=== PATIENT | male | born 1955 | race Hispanic/Latino ===

== ENCOUNTER 2016-12-24 17:55 | Observation (INO) | payer OTHER, MEDICARE ==
[2016-12-24] MEDS ORDERED: Sodium Chloride 0.9% 500 ML IV STA (19:29)
[2016-12-24 19:51] LABS: HEMOGLOBIN 12.4 g/dL (14.0-18.0); MEAN CELL VOLUME 88.1 fl (80.0-105.0); MEAN PLATELET VOLUME 10.7 fl (7.0-11.0); RBC 4.27 10^6/uL (3.5-6.1); RED CELL DISTRIBUTION WIDTH 13.1 % (11.5-14.5); WHITE BLOOD COUNT 11.2 10^3/ul (4.5-11.0)
[2016-12-24 20:00] LABS: ALB/GLOB RATIO 1.3 (1.1-1.8); CALCIUM 9.2 mg/dL (8.4-10.5)
[2016-12-24 20:01] LABS: INR 0.98 (0.93-1.08); PROTHROMBIN TIME 10.6 Seconds (9.9-11.8)
[2016-12-24 20:11] LABS: TROPONIN I 0.02 ng/mL
--- NOTE | 2016-12-24 20:11 | ED PDOC ---
Arrival/HPI - General Chief Complaint: Altered Mental Status Time Seen by Provider: 12/24/16 19:23 Historian: Patient - History of Present Illness Narrative History of Present Illness (Text): 12/24/16 19:25 Fabián Munguia is a 61 year old male, whose past medical history diabetes, CHF, hypertension, chronic back pain secondary to herniated discs, and spinal stenosis, who presents to the emergency department sent in by girlfriend after a syncopal episode prior to arrival. Patient is on oxycontin medication. Patient does not remembers what happened prior to syncopal episode. Patient denies any head pain, neck pain, chest pain, shortness of breath, fever, chills , or any other complaints at this time. Time/Duration: Prior to Arrival Activities at Onset: Light Modifying Factors (Text): none Context: Home Past Medical History - Provider Review Nursing Documentation Reviewed: Yes - Infectious Disease Hx of Infectious Diseases: None - Tetanus Immunization Tetanus Immunization: Unknown - Cardiac Hx Congestive Heart Failure: Yes Hx Hypertension: Yes - Pulmonary Hx Chronic Obstructive Pulmonary Disease (COPD): Yes - Neurological HX Cerebrovascular Accident: No Hx Dementia: No Hx Seizures: No - HEENT Hx HEENT Disorder: No Hx Blind: No Hx Cataracts: No Hx Deafness: No Hx Difficulty Chewing: No Hx Epistaxis: No Hx Glaucoma: No Hx Macular Degeneration: No - Renal Hx Renal Disorder: No - Endocrine/Metabolic Hx Diabetes Mellitus Type 2: Yes Hx Hypothyroidism: Yes - Hematological/Oncological Hx Anemia: No Hx Cancer: Yes (Colon CA) - Integumentary Hx Dermatological Disorder: Yes Other/Comment: Facial flushing with dryness since being on antibiotics - approx 6 wks - Musculoskeletal/Rheumatological Hx Falls: No - Gastrointestinal Hx Gastrointestinal Disorders: Yes (Colon CA) - Genitourinary/Gynecological Other/Comment: urinary frequency - Psychiatric Hx Depression: No Hx Emotional Abuse: No Hx Physical Abuse: No Hx Substance Use: No - Surgical History Hx Gastric Bypass Surgery: No Other/Comment: RT 4TH AND 5TH PARTIAL AMPUTATION. PICC LINE in L arm - Anesthesia Hx Anesthesia: Yes Hx Anesthesia Reactions: No Hx Malignant Hyperthermia: No - Suicidal Assessment Feels Threatened In Home Enviroment: No Family/Social History - Physician Review Nursing Documentation Reviewed: Yes Family/Social History: No Known Family HX Smoking Status: Never Smoked Hx Alcohol Use: No Hx Substance Use: No Hx Substance Use Treatment: No Allergies/Home Meds Allergies/Adverse Reactions: Allergies cephalexin monohydrate [From Keflex] Allergy (Verified 12/20/15 14:26) RASH Home Medications: Home Meds Medication Instructions Recorded Confirmed Alprazolam [Xanax] 2 mg PO TID 10/12/11 05/06/16 Atorvastatin [Lipitor] 40 mg PO DAILY 10/12/11 05/06/16 Oxycodone HCl [Roxicodone] 30 mg PO Q4 10/12/11 05/06/16 Carisoprodol [Soma] 350 mg PO TID 10/30/15 05/06/16 Gabapentin [Neurontin] 800 mg PO TID 10/30/15 05/06/16 Levothyroxine Sodium 0.1 mg PO DAILY 10/30/15 05/06/16 [Levothyroxine Sodium] Losartan Potassium [Losartan 100 mg PO DAILY 10/30/15 05/06/16 Potassium] Oxycodone HCl [Oxycontin] 80 mg PO Q8 10/30/15 05/06/16 glyBURIDE [Micronase] 5 mg PO DAILY 10/30/15 05/06/16 metFORMIN [glucOPHAGE] 500 mg PO BID 10/30/15 05/06/16 Review of Systems - Review of Systems Constitutional: absent: Fevers, Night Sweats Eyes: absent: Vision Changes ENT: absent: Hearing Changes Respiratory: absent: SOB, Cough Cardiovascular: Syncope Gastrointestinal: absent: Abdominal Pain Genitourinary Male: absent: Dysuria, Urinary Output Changes Musculoskeletal: absent: Arthralgias, Back Pain Skin: absent: Rash, Pruritis Neurological: absent: Headache, Dizziness Endocrine: absent: Diaphoresis Hemo/Lymphatic: absent: Adenopathy Psychiatric: absent: Depression Physical Exam Vital Signs Reviewed: Yes Vital Signs Temp Pulse Resp BP Pulse Ox 12/24/16 18:05 96.5 F L 100 H 20 118/56 L 94 L Temperature: Hypothermic Blood Pressure: Hypotensive Pulse: Tachycardic Pain Distress: None Mental Status: Positive for: Alert and Oriented X 3 Finger Stick Blood Glucose: 208 - Systems Exam Head: Present: Atraumatic, Normocephalic Pupils: Present: Other (small and reactive) Extroacular Muscles: Present: EOMI Conjunctiva: Present: Normal Mouth: Present: Moist Mucous Membranes Neck: Present: Normal Range of Motion Respiratory/Chest: Present: Clear to Auscultation, Good Air Exchange. No: Respiratory Distress, Accessory Muscle Use Cardiovascular: Present: Regular Rate and Rhythm, Normal S1, S2. No: Murmurs Abdomen: Present: Normal Bowel Sounds. No: Tenderness, Distention, Peritoneal Signs Back: Present: Normal Inspection Upper Extremity: Present: Normal Inspection. No: Cyanosis, Edema Lower Extremity: Present: Normal Inspection. No: Edema Neurological: Present: Other (Drowsy but alert) Skin: Present: Warm, Dry, Normal Color. No: Rashes Psychiatric: Present: Alert, Oriented x 3, Normal Insight, Normal Concentration Medical Decision Making ED Course and Treatment: 12/24/16 19:23 Impression: 61 year old present emergency department with syncopal episode prior to arrival Differential Diagnosis included but are not limited to: syncope vs.cerebral bleed vs. narcotic abuse Plan: -- EKG -- Chest X-ray -- Labs -- IV Fluids -- Reassess and disposition Prior Visits: Notes and results from previous visits were reviewed. Patient last seen in the ED on 05/01/16 for evaluation status post fall that day. Patient was admitted to ICU for further evaluation. Progress Notes: 12/24/16 22:32 CXR interpreted by me: No acute processes. EKG interpreted by me: Sinus Tachycardia @ 101 bpm. Occasional PACs. Non-specific STT changes. 12/24/16 23:37 CT Head reviewed: Dictated and Authenticated by: Katarina Monroy MD FINDINGS: Brain: No acute intracranial hemorrhage. Age-appropriate periventricular white matter disease. No edema. Findings within the right cerebellum consistent with prior cerebral infarction. Ventricles: Age-appropriate ventriculomegaly. Bones: No acute displaced fracture. Sinuses: Mucoperiosteal thickening within the bilateral maxillary sinuses (left greater than right). Mastoid air cells: Unremarkable as visualized. No mastoid effusion. IMPRESSION: No acute intracranial hemorrhage, or suspicious mass effect. Inflammatory sinus disease. 12/25/16 00:25 Case discussed with who is aware and agrees with the plan to observe patient at telemetry for syncope. Accepts patient under his service. - Lab Interpretations Lab Results: 12/24/16 19:30 12/24/16 19:30 Lab Results 12/24/16 22:20: Urine Opiates Screen Positive H, Urine Methadone Screen Negative , Ur Barbiturates Screen Negative, Ur Phencyclidine Scrn Negative, Ur Amphetamines Screen Negative, U Benzodiazepines Scrn Positive H, U Oth Cocaine Metabols Negative, U Cannabinoids Screen Negative 12/24/16 21:00: Alcohol, Quantitative < 10 12/24/16 19:30: WBC 11.2 H, RBC 4.27, Hgb 12.4 L, Hct 37.6 L, MCV 88.1, MCH 29.0 , MCHC 33.0, RDW 13.1, Plt Count 173, MPV 10.7 12/24/16 19:30: Sodium 137, Potassium 4.3, Chloride 100, Carbon Dioxide 28, Anion Gap 13, BUN 48 H, Creatinine 2.3 H, Est GFR ( Amer) 35, Est GFR ( Non-Af Amer) 29, Random Glucose 186 H, Calcium 9.2, Total Bilirubin 0.7, AST 38 , ALT 34, Alkaline Phosphatase 105, Lactate Dehydrogenase 395, Total Creatine Kinase 684 H, CK-MB (CK-2) 6.9 H, CK-MB (CK-2) % 1.0 L, Troponin I 0.02 D, Total Protein 7.0, Albumin 4.0, Globulin 3.0, Albumin/Globulin Ratio 1.3 12/24/16 19:30: PT 10.6, INR 0.98, APTT 24.0 12/24/16 18:05: POC Glucose (mg/dL) 208 H I have reviewed the lab results: Yes - RAD Interpretation Radiology Orders: 12/24/16 19:28 CHEST PORTABLE [RAD] Stat 12/24/16 22:20 HEAD W/O CONTRAST [CT] Stat E Business Project Manager: Radiologist - Medication Orders Current Medication Orders: Discontinued Medications Sodium Chloride (Sodium Chloride 0.9%) 500 mls @ 500 mls/hr IV .Q1H STA Stop: 12/24/16 20:28 Last Admin: 12/24/16 20:39 Dose: 500 mls/hr - Scribe Statement The provider has reviewed the documentation as recorded by the Dejonibthierry Pickens Provider Scribe Attestation: All medical record entries made by the Scribe were at my direction and personally dictated by me. I have reviewed the chart and agree that the record accurately reflects my personal performance of the history, physical exam, medical decision making, and the department course for this patient. I have also personally directed, reviewed, and agree with the discharge instructions and disposition. Disposition/Present on Arrival - Present on Arrival Any Indicators Present on Arrival: No History of DVT/PE: Yes History of Uncontrolled Diabetes: Yes Urinary Catheter: No History of Decub. Ulcer: No History Surgical Site Infection Following: None - Disposition Have Diagnosis and Disposition been Completed?: Yes Diagnosis: Syncope Disposition: HOSPITALIZED Disposition Time: 00:12 Patient Plan: Observation Patient Problems: Current Active Problems Problem Status Onset Syncope Acute Condition: STABLE Discharge Instructions (ExitCare): Syncope (ED) Referrals: Timothy Adams MD [Primary Care Provider] - Follow up with primary Forms: [employer] (Belarusian)
[2016-12-24 20:16] LABS: CK-MB 6.9 ng/mL (0.0-3.6)
[2016-12-24 22:46] LABS: BARBITURATES, UR NEGATIVE (NEGATIVE); BENZODIAZEPINES, UR POSITIVE (NEGATIVE); OPIATES, UR POSITIVE (NEGATIVE); PHENCYCLIDINE, UR NEGATIVE (NEGATIVE)
--- NOTE | 2016-12-24 23:25 | CT ---
EXAM: CT Head Without Intravenous Contrast CLINICAL HISTORY: 61 years old, male; Signs and symptoms; Syncope and collapse TECHNIQUE: Axial computed tomography images of the head/brain without intravenous contrast. All CT scans at this facility use one or more dose reduction techniques, viz.: automated exposure control; ma/kV adjustment per patient size (including targeted exams where dose is matched to indication; i.e. head); or iterative reconstruction technique. COMPARISON: CT - HEAD W/O CONTRAST 05/01/2016 6:42:53 AM FINDINGS: Brain: No acute intracranial hemorrhage. Age-appropriate periventricular white matter disease. No edema. Findings within the right cerebellum consistent with prior cerebral infarction. Ventricles: Age-appropriate ventriculomegaly. Bones: No acute displaced fracture. Sinuses: Mucoperiosteal thickening within the bilateral maxillary sinuses (left greater than right). Mastoid air cells: Unremarkable as visualized. No mastoid effusion. IMPRESSION: No acute intracranial hemorrhage, or suspicious mass effect. Inflammatory sinus disease.
[2016-12-25 04:59] VITALS: BMI 36.6
[2016-12-25 06:03] VITALS: O2SAT 96
[2016-12-25] MEDS: Levothyroxine 100 MCG TAB PO SCH (07:05)
--- NOTE | 2016-12-25 09:11 | RAD ---
HISTORY: syncope COMPARISON: 05/01/2016 FINDINGS: LUNGS: No active pulmonary disease. PLEURA: No significant pleural effusion identified, no pneumothorax apparent. CARDIOVASCULAR: Normal. OSSEOUS STRUCTURES: No significant abnormalities. VISUALIZED UPPER ABDOMEN: Normal. OTHER FINDINGS: None. IMPRESSION: No active disease.
[2016-12-25] MEDS ORDERED: Sodium Chloride 0.9% 1,000 ML IV SCH (09:15)
--- NOTE | 2016-12-25 10:32 | CP.PCM.CON ---
<Rohan Trotter - Last Filed: 12/25/16 14:41> History of Present Illness - History of Present Illness History of Present Illness: Neurology Consult Note for Dr. Rapp Reason for Consult: Syncope 61 y/o M with PMH of NIDDM, CHF, HTN, hypothyroidisn, gout, PE s/p IVC filter, DJD, chronic pain syndrome, and morbid obesity presents to the hospital s/p fall at home. Pt states that he did not have a syncopal episode or lose consciousness. Pt reports walking in his house when his legs gave out. He states his fall was witnessed by his girlfriend and he did not have any convulsive movements or incontinence. Pt also reports no tongue biting. Pt does have baseline weakness in his legs and has been admitted to the hospital several times in the past with similar complaints. Pt uses a cane at home for ambulation. Pt reports increased weakness in his legs recently and thinks that may have contributed to his fall. Denies CP, SOB, N/V/D, fever, chills, dizziness, recent sick contacts, recent travel. PMH: NIDDM, CHF, HTN, hypothyroidisn, gout, PE s/p IVC filter, DJD, chronic pain syndrome, and morbid obesity FMH: Noncontributory Social Hx: Denies alcohol, tobacco, or illicit drug use Medication: Reviewed, as per chart Allergies: Cephalexin Review of Systems - Review of Systems Review of Systems: 12 point review of systems as per HPI, otherwise negative Past Patient History - Infectious Disease Hx of Infectious Diseases: None - Tetanus Immunizations Tetanus Immunization: Unknown - Past Social History Smoking Status: Never Smoked - CARDIAC Hx Cardiac Disorders: Yes Hx Angina: No Hx Cardia Arrhythmia: No Hx Circulatory Problems: Yes Hx Congestive Heart Failure: Yes Hx Heart Murmur: No Hx Heart Transplant: No Hx Hypercholesterolemia: No Hx Hypertension: Yes Hx Internal Defibrillator: No Hx Mitral Valve Prolapse: No Hx Pacemaker: No Hx Peripheral Edema: Yes Hx Peripheral Vascular Disease: Yes - PULMONARY Hx Respiratory Disorders: Yes Hx Asthma: No Hx Bronchitis: No Hx Chronic Obstructive Pulmonary Disease (COPD): Yes Hx Emphysema: No Hx Pneumonia: No Hx Respiratory Aspiration: No Hx Respiratory Tract Infection: No Hx Sleep Apnea: No Hx Tuberculosis: No - NEUROLOGICAL Hx Neurological Disorder: No - HEENT Hx HEENT Problems: No - RENAL Hx Chronic Kidney Disease: No - ENDOCRINE/METABOLIC Hx Endocrine Disorders: Yes Hx Diabetes Mellitus Type 2: Yes Hx Hypothyroidism: Yes - HEMATOLOGICAL/ONCOLOGICAL Hx Blood Disorders: Yes Hx Cancer: Yes - INTEGUMENTARY Hx Dermatological Problems: Yes Other/Comment: Redness in abdominal folds - MUSCULOSKELETAL/RHEUMATOLOGICAL Hx Musculoskeletal Disorders: Yes Hx Degenerative Joint Disease: Yes Hx Falls: Yes Hx Gout: Yes Hx Herniated Disk: Yes Hx Osteomyelitis: Yes Hx Spinal Stenosis: Yes Hx Unsteady Gait: Yes (uses cane) - GASTROINTESTINAL Hx Gastrointestinal Disorders: No - GENITOURINARY/GYNECOLOGICAL Hx Hematuria: Yes Hx Prostate Problems: Yes - PSYCHIATRIC Hx Psychophysiologic Disorder: No - SURGICAL HISTORY Hx Surgeries: Yes Hx 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) Hx Cardiac Catheterization: No Hx Coronary Stent: No - ANESTHESIA Hx Anesthesia: Yes Hx Anesthesia Reactions: No Hx Malignant Hyperthermia: No Meds Allergies/Adverse Reactions: Allergies Allergy/AdvReac Type Severity Reaction Status Date / Time cephalexin monohydrate Allergy RASH Verified 12/20/15 14:26 [From Keflex] - Medications Medications: Current Medications Alprazolam (Xanax) 2 mg PO TID PRN PRN Reason: Anxiety Last Admin: 12/25/16 07:05 Dose: 2 mg Atorvastatin Calcium (Lipitor) 40 mg PO HS KARAN Gabapentin (Neurontin) 600 mg PO BID [facility]ARAN Glyburide (Micronase) 5 mg PO DAILY [facility] Sodium Chloride (Sodium Chloride 0.9%) 1,000 mls @ 100 mls/hr IV .Q10H [facility] Stop: 12/25/16 19:14 Insulin Human Regular (Humulin R Low) 0 units SC ACHS [facility] PRN Reason: Protocol Levothyroxine Sodium (Synthroid) 100 mcg PO 0630 [facility] Last Admin: 12/25/16 07:05 Dose: 100 mcg Losartan Potassium (Cozaar) 100 mg PO DAILY [facility] Oxycodone HCl (Oxycodone Immediate Release Tab) 30 mg PO Q4 PRN PRN Reason: Pain, moderate (4-7) Oxycodone HCl (Oxycontin Extended Release Tab) 80 mg PO Q12 [facility] Physical Exam - Constitutional Appears: Non-toxic, No Acute Distress - Head Exam Head Exam: ATRAUMATIC, NORMAL INSPECTION, NORMOCEPHALIC - Eye Exam Eye Exam: EOMI - ENT Exam ENT Exam: Mucous Membranes Moist - Neck Exam Neck exam: Positive for: Normal Inspection. Negative for: Lymphadenopathy - Respiratory Exam Respiratory Exam: Clear to Auscultation Bilateral, NORMAL BREATHING PATTERN. absent: Rales, Rhonchi, Wheezes - Cardiovascular Exam Cardiovascular Exam: RRR, +S1, +S2 - GI/Abdominal Exam GI & Abdominal Exam: Normal Bowel Sounds, Soft. absent: Tenderness - Extremities Exam Extremities exam: Positive for: pedal edema (+1 b/l). Negative for: calf tenderness - Neurological Exam Neurological exam: Alert, CN II-XII Intact, Oriented x3 Additional comments: No pronator drift Muscle strength 5/5 in all extremities Speech is fluent without errors - Psychiatric Exam Psychiatric exam: Normal Affect, Normal Mood - Skin Skin Exam: Intact, Normal Color, Warm Results - Vital Signs Recent Vital Signs: Last Vital Signs Temp 98.1 F 12/25/16 06:00 Pulse 86 12/25/16 06:00 Resp 20 12/25/16 06:00 BP 132/66 12/25/16 06:00 Pulse Ox 96 12/25/16 06:00 - Labs Result Diagrams: 12/24/16 19:30 12/24/16 19:30 Labs: Laboratory Results - last 24 hr 12/25/16 07:12 POC Glucose (mg/dL) 171 H Assessment & Plan - Assessment and Plan (Free Text) Plan: 61 y/o M with PMH of NIDDM, CHF, HTN, hypothyroidisn, gout, PE s/p IVC filter, DJD, chronic pain syndrome, and morbid obesity presents after a mechanical fall at home. Lower extremity weakness secondary to peripheral neuropathy may have contributed to fall. Pt did have elevated HgA1c and will recheck on this admission. At this time, will also adjust pain and neuropathic medication as overuse may contribute to weakness. Pt is neurologically stable, will sign off at this time. Please reconsult as needed. Plan: Check HgA1c Maintain glucose levels between 140-180 Neurontin dosage adjusted Decrease pain medication Physical therapy Rose Marie, PGY-2 <Shai Rapp - Last Filed: 12/26/16 10:19> Meds - Medications Medications: Current Medications Alprazolam (Xanax) 2 mg PO TID PRN PRN Reason: Anxiety Last Admin: 12/25/16 07:05 Dose: 2 mg Atorvastatin Calcium (Lipitor) 40 mg PO HS [facility] Last Admin: 12/25/16 21:37 Dose: 40 mg Gabapentin (Neurontin) 600 mg PO BID [facility] Last Admin: 12/25/16 17:09 Dose: Not Given Glyburide (Micronase) 5 mg PO DAILY [facility] Last Admin: 12/25/16 09:57 Dose: 5 mg Insulin Human Regular (Humulin R Low) 0 units SC ACHS [facility] PRN Reason: Protocol Last Admin: 12/26/16 08:31 Dose: Not Given Levothyroxine Sodium (Synthroid) 100 mcg PO 0630 [facility] Last Admin: 12/26/16 05:31 Dose: 100 mcg Losartan Potassium (Cozaar) 100 mg PO DAILY [facility] Last Admin: 12/25/16 09:57 Dose: Not Given Oxycodone HCl (Oxycodone Immediate Release Tab) 30 mg PO Q4 PRN PRN Reason: Pain, moderate (4-7) Last Admin: 12/25/16 13:24 Dose: 30 mg Oxycodone HCl (Oxycontin Extended Release Tab) 80 mg PO Q12 [facility] Last Admin: 12/25/16 21:37 Dose: 80 mg Results - Vital Signs Recent Vital Signs: Last Vital Signs Temp 97.7 F 12/26/16 05:53 Pulse 77 12/26/16 05:53 Resp 20 12/26/16 05:53 BP 126/60 12/26/16 05:53 Pulse Ox 96 12/25/16 06:00 - Labs Result Diagrams: 12/24/16 19:30 12/24/16 19:30 Labs: Laboratory Results - last 24 hr 12/25/16 12/25/16 12/25/16 11:01 16:08 21:31 POC Glucose (mg/dL) 331 H 105 199 H Attending/Attestation - Attestation I have personally seen and examined this patient.: Yes I have fully participated in the care of the patient.: Yes I have reviewed all pertinent clinical information: Yes
--- NOTE | 2016-12-25 11:52 | CARD ---
APPROVED REPORT EKG Measurement Heart [id number] <Conclusion> Sinus tachycardia with premature atrial complexes Otherwise normal ECG
[2016-12-25] MEDS: Insulin Reg-LOW-Coverage SC SCH ×3 (12:12→21:32)
[2016-12-25] MEDS: oxyCODONE 30 mg Immediate Release Tab PO PRN (13:24)
[2016-12-25] MEDS: oxyCODONE 80 mg ER Tab (oxyCONTIN) PO SCH ×2 (13:27→21:37)
[2016-12-25 17:31] VITALS: RESP 20
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
[2016-12-26] MEDS: Levothyroxine 100 MCG TAB PO SCH (05:31)
--- NOTE | 2016-12-26 08:00 | HP ---
CHIEF COMPLAINT/HISTORY OF PRESENT ILLNESS: This is a 61-year-old male who is coming to the hospital because of changes in his mental status. He states that he had passed out. The patient has a past medical history significant for chronic back pain, on chronic narcotics. He has diabetes, CKD, hypothyroidism. The patient does not remember what has happened. He was admitted to the hospital in March for an episode of syncope as well. He denies any chest pain. No shortness of breath. No headaches or dizziness. No fevers. No weakness in the arms or legs. He said that his girlfriend called EMS to bring him in for further evaluation. He is able to walk, but does have some limitations because of his back pain. He is able to walk at home mostly. No fevers or chills. No new weakness in the arms or the legs. No hallucinations. REVIEW OF SYMPTOMS: All the review of symptoms are within normal limits, except what is mentioned. ALLERGIES: HIS ALLERGY IS TO CEPHALEXIN. HOME MEDICATIONS: Xanax, Lipitor, Roxicodone, Soma, Neurontin, levothyroxine, losartan, OxyContin, Micronase, and metformin. PAST MEDICAL HISTORY: 1. Diabetes type 2. 2. COPD. 3. Chronic back pain. 4. Hypertension. 5. Hypothyroidism. 6. DVT. 7. Status post IVC filter. 8. Gout. 9. Dyslipidemia. 10. Peripheral arterial disease. 11. CKD stage III. 12. Right toe osteomyelitis. PAST SURGICAL HISTORY: Right fourth and fifth toe amputation. SOCIAL HISTORY: He does not smoke. He denies any substance abuse or illicit drug use. FAMILY HISTORY: Noncontributory. PHYSICAL EXAMINATION: VITAL SIGNS: Temperature is 98.7, pulse of 56, blood pressure 137/69, and respirations 20. Height is 6 feet 2 inches and weight is 285 pounds, BMI is 36.6. GENERAL: The patient lying in bed, uncomfortable, and in no acute distress. HEENT: Atraumatic and normocephalic. Anicteric sclerae. Moist mucosa. [place] conjunctivae. No oral lesions. NECK: No JVD, anterior and posterior adenopathy, thyromegaly, or bruits. CARDIOVASCULAR: S1 and S2 regular. No murmur, rubs, or gallop. LUNGS: Clear to auscultation bilaterally. No wheezes, rales, or rhonchi. ABDOMEN: Bowel sounds are positive. Soft, nontender and nondistended. No hepatosplenomegaly. No rebound and no guarding EXTREMITIES: No cyanosis, clubbing, or edema. NEUROLOGIC: He is alert, awake and oriented x2. He believes that it is Saturday; although, it is Saturday. No facial asymmetry. Tongue is midline. No uvula deviation. Power is 5/5, upper extremity and lower extremity. PSYCHIATRIC: He is awake, alert and oriented x3. No anxiety or depression. He has normal affect. GENITOURINARY: No CVA tenderness. VASCULAR: 2+ pulses in the carotid pulses and pedal pulses. SKIN: No erythema or nodules SPINE: Shows normal curvature. EXTREMITIES: No cyanosis and clubbing, no edema. LABORATORY DATA: White count of 11.2, hemoglobin 12.4 and platelet count is 173. Chemistry shows a sodium 137, potassium 4.3, creatinine is 2.3, CK is 684, albumin is 4.0. Toxicology is positive for opiates and benzodiazepines. Alcohol is less than 10. He has an EKG that shows sinus tachycardia with PAC. He has a heart rate of 101. QTc is 469. He has a chest x-ray done, shows no active disease. A CT of the head done shows no acute intracranial abnormalities. ASSESSMENT: 1. Syncope. 2. Diabetes type 2. 3. Chronic obstructive pulmonary disease, stable. 4. Hypertension. 5. Hypothyroidism. 6. History of deep vein thrombosis with inferior vena cava filter, not on anticoagulation. 7. Dyslipidemia. 8. Peripheral arterial disease. 9. Chronic kidney disease, stage III. 10. Obese with a body mass index of 36. 11. Diabetic nephropathy. PLAN: The patient is currently comfortable. After reviewing his medications, I believe that he may be taking too much of his Neurontin. He was taking 800 mg t.i.d., which is well above the dosage he should be on given that he has CKD stage IIIB, close to stage IV. The patient is going to have his Neurontin adjusted. I did speak to him about this. I also spoke with Dr. Rapp. The patient is going to continue Lipitor for dyslipidemia and Cozaar for his hypertension. He was given IV fluids. The patient is on Neurontin for neuropathy. He is on fingersticks with coverage. He is on OxyContin and Roxicodone. He is on Synthroid for hypothyroidism. He has been on narcotics for very long time because of his chronic pain issues. I will also get Dr. Pagan to evaluate the patient for his anxiety. I will also get Dr. Seay to evaluate the patient for any cardiac issues. The patient had urine for protein and creatinine done in April, it does not show significant proteinuria. His kidney disease is most likely secondary to diabetic nephropathy. The patient is currently comfortable. He is going to need physical therapy. We will continue to follow him closely. He may need a stress test. He has a high risk of having coronary artery disease given he has CKD and diabetes, as well as obesity and hypertension. Antonio Molina MD
[2016-12-26] MEDS: Insulin Reg-LOW-Coverage SC SCH ×3 (08:31→17:35)
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
[2016-12-26] MEDS ORDERED: Aminophylline 25 mg/ml Inj ONE (09:07)
--- NOTE | 2016-12-26 11:59 | PN ---
DATE: 12/26/2016 REASON FOR CONSULTATION: Followup syncope, cardiac evaluation. SUBJECTIVE: The patient is lying flat on the bed on *------*. He denies any chest pain, shortness of breath, or any palpitation. PHYSICAL EXAMINATION: As follows: VITAL SIGNS: Temperature afebrile, heart rate of 74, and blood pressure 106/60. HEENT: PERRLA. Extraocular muscles are intact. NECK: Supple. No carotid bruit. No thyromegaly. CHEST: Clear to auscultation. HEART: S1 and S2 regular. ABDOMEN: Soft. EXTREMITIES: Clubbing and cyanosis negative. LABORATORY DATA: Blood workup as follows: WBC of 11.2, hemoglobin of 12.4, hematocrit of 37.6, and platelet count of 173 as of 12/24/2016. Sodium of 137, potassium of 4.3, chloride of 100, carbon dioxide 28, anion gap of 30, BUN of 20, and creatinine of 2.3 as of 12/24/2016, but today's lab is pending. IMPRESSION AND PLAN: A 61-year-old male with past medical history of diabetes, hypertension, hyperlipidemia and back injury who was bedridden, walk with a walker, multiple high doses of OxyContin admitted with history of syncope. The patient is not sure what is happened to him. Given the multiple disorder of coronary artery *------* lipid profile, TSH, and hemoglobin A1c. The patient is scheduled for his stress test today. We will follow with lab, for today it is pending. Further recommendation after the finding of initial workup and hospital course. The patient has rhabdomyolysis. On admission, continue IV fluid and monitor CPK and troponin. Today's lab is pending. We will follow with you. Thank you Dr. Molina, for the opportunity in taking care of the patient. Roseann Seay MD
--- NOTE | 2016-12-26 12:24 | PN ---
DATE: NEUROLOGY FOLLOWUP CHIEF COMPLAINT: Followup for syncope. SUBJECTIVE: The patient seen and examined at bedside. The patient is following medications well. No new complaints overnight. His medications are adjusted that his gabapentin now is 600 mg p.o. b.i.d. and primary care is working on tapering down his opioids. PAST MEDICAL HISTORY: Non-insulin dependent diabetes mellitus, CHF, hypertension, hypothyroidism, gout, PE, status post IVC filter, disk degenerative joint disease, chronic pain syndrome, morbid obesity. REVIEW OF SYSTEMS: A 14-point review of system is negative except as in the HPI. FAMILY HISTORY: Noncontributory. SOCIAL HISTORY: Denies any alcohol, illicit drug use or tobacco use. MEDICATIONS: Reviewed by the nurse per reconciliation sheet. ALLERGIES: ALLERGIC TO CEPHALEXIN. PHYSICAL EXAMINATION: VITAL SIGNS: Temperature is 97.7, pulse rate 74, blood pressure 126/60, respiratory rate 20. GENERAL: The patient is sitting up in the bed, in no acute distress. HEENT: Head is atraumatic and normocephalic. PERRLA. Extraocular muscles intact. NECK: Supple. No JVD. No adenopathy noted. LUNGS: Clear to auscultation. No adventitious sounds. HEART: S1 and S2, normal rate and rhythm. No murmurs, rubs, or gallops. ABDOMEN: Soft, nontender, nondistended. Bowel sounds are present. EXTREMITIES: No clubbing and no cyanosis. Peripheral pulses are 2+, felt bilaterally. NEUROLOGIC: The patient is alert and oriented to person, place and year. Recall after 5 minutes is 0 out of 3. Poor attention. Slow thought process. Cranial nerves II through XII intact. Speech is fluent without any errors. Motor exam: Moves all extremities equally. No pronator drift seen. Sensory exam: Decreased light touch, pinprick and proprioception upper calves bilaterally, decreased vibration of the toes and knees. DTRs are 1+ and absent at the knees. Coordination, [id number] intact. Gait is deferred for now. No tremors elicited. LABORATORY DATA: Today's blood sugar is 199. ASSESSMENT AND PLAN: A 61-year-old man with past medical history of non-insulin dependent diabetes mellitus, congestive heart failure, hypertension, hypothyroidism, gout, pulmonary embolism, status post inferior vena cava filter, disk degenerative disease, chronic pain syndrome, on chronic opioids, morbid obesity, had a mechanical fall at home, lower extremity weakness secondary to severe diabetic peripheral neuropathy sensorimotor type, which contributes to his gait dysfunction and generalized weakness. He has had a history of elevated A1c of 12 in the past, which indicates poorly-controlled diabetes. His generalized weakness and syncope is also related to neuropathic and chronic pain medications. At this time, recommend: 1. Reduce the Neurontin to 600 mg p.o. b.i.d. 2. Taper down the opiates strength and the timing of that he gets the pain medication in terms of opioids. 3. Keep his blood sugars between 140 to 180. 4. Required physical therapy and possibly subacute rehab. At this time, continue with current present medical management in regards to his medical problems. Thank you for this followup. Shai Rapp MD MTDYohana
[2016-12-26] MEDS: oxyCODONE 80 mg ER Tab (oxyCONTIN) PO SCH (13:15)
--- NOTE | 2016-12-26 14:21 | DS ---
Perri ramirez. Antonio Molina MD
[2016-12-26 14:22] LABS: BASO # 0.01 K/mm3 (0.0-2.0); BASO % 0.1 % (0.0-3.0); EOS # 0.2 (0.0-0.7); EOS % 1.9 % (1.5-5.0); GRAN % 63.4 % (50.0-68.0); HEMOGLOBIN 10.7 g/dL (14.0-18.0); LYMPH # 2.1 (1.2-3.4); LYMPH % 27.2 % (22.0-35.0); MEAN CELL VOLUME 88.9 fl (80.0-105.0); MEAN CORPUSCULAR HEMOGLOBIN 29.1 pg (25.0-35.0); MEAN CORPUSCULAR HGB CONC 32.7 g/dl (31.0-37.0); MEAN PLATELET VOLUME 10.3 fl (7.0-11.0); MONO # 0.6 (0.1-0.6); MONO % 7.4 % (1.0-6.0); PLATELET COUNT 157 10^3/uL (120.0-450.0); RBC 3.68 10^6/uL (3.5-6.1); RED CELL DISTRIBUTION WIDTH 13.2 % (11.5-14.5); WHITE BLOOD COUNT 7.7 10^3/ul (4.5-11.0)
--- NOTE | 2016-12-26 14:27 | CARD ---
APPROVED REPORT Protocol: LEXISCAN Test Type: Lexiscan Sestamibi Stress Test Attending Physician: Dr. Roseann Matos Referring Physician: Dr. Antonio Molina Test Indications: Syncope Height:6 ft 2 in Weight:285lbs Medications: Xanax,Lipitor,Neurontin, Glyburide,Insulin,Synthroid, Cozaar, Oxycodone Medical History: 61 y/o male. Hx of diabetic,hypertension, CHF, Hypothyroid, PE with filter. Target HR: 160 bpm Resting ECG: RSR. Resting Heart Rate: 73 bpm Resting Blood Pressure: 144/80mmHg Submaximum (85%): 136 bpm PROCEDURE Pharmacologic stress testing was performed using 0.4mg per 5ml of regadenoson given intravenously over 7-10 seconds. POST EXERCISE Reason for Termination: Protocol completed Target HR: No Max HR: 69 bpm 53% of Maximum Predicted HR: 160 bpm Exercise duration: 00:30 min:sec, 0 Stage Exercise capacity: 1.0METs Max Blood Pressure: 144/80mmHg Blood Pressure response to exercise: resting hypertension - appropriate response Heart Rate response to exercise: appropriate Chest Pain: No, none Angina index: 0 Arrhythmia: No, none ST Change: No, none Deviation: 0 mm INTERPRETATION Stress EKG Conclusion: IV LEXISCAN NUCLEAR STRESS TEST NEGATIVE FOR CHEST PAIN AND NEGATIVE FOR ST-T CHANGES. NUCLEAR SCAN REPORT PENDING. Signed by Roseann Matos Electronically Approved: 12/26/2016 10:12:46 EXAM: Myocardial Perfusion REST/STRESS Stress Test Type: Pharmacologic Imaging Protocol Rest Spect myocardial perfusion imaging was performed in supine position 37 minutes following the injection of 10.4 mCi of Tc-99 Myoview. At peak stress, the patient was injected intravenously with 32mCi of Tc-99 tetrofosmin after an infusion time of 0 minutes and 10 seconds. Gated Stress Spect was performed 60 minutes after intravenous Tc-99 Myoview injection. The images were gated to evaluate regional wall motion and calculate ventricular ejection fraction.Images were reconstructed using backfilter projection method in short horizontal and verticle long axis. Spect slices were generated. LV Perfusion The quality of the study is good. The left ventricle moderately enlarged in size. The right ventricle is unremarkable. The lung uptake is normal. The distribution of tracer reveals heterogeneous uptake with moderately and diffusely decreased perfusion involving anterior wall on the stress study. The remainder of the LV myocardium is unremarkable. The rest myocardial perfusion study shows no significant change. Wall Motion Wall motion study shows good contractility of the left ventricle. LVEF = 52%. Conclusion 1. Probably normal SPECT myocardial perfusion study. 2. Heterogeneous activities and fixed, inferior defect are most likely due to soft tissue and diaphragmatic attenuation respectively. 3. Normal gated wall motion and thicknening of the left ventricle.
[2016-12-26 14:31] LABS: ALB/GLOB RATIO 1.1 (1.1-1.8); ALBUMIN 3.5 g/dL (3.0-4.8); CALCIUM 8.8 mg/dL (8.4-10.5); MAGNESIUM 1.8 mg/dL (1.7-2.2)
[2016-12-26] MEDS: oxyCODONE 30 mg Immediate Release Tab PO PRN (14:56)
[2016-12-26 17:02] VITALS: BP 174/86; PULSE 79; TEMP 98.3
--- NOTE | 2016-12-26 18:00 | CARD ---
APPROVED REPORT EXAM: Two-dimensional and M-mode echocardiogram with Doppler and color Doppler. INDICATION Syncope 2D DIMENSIONS IVSd1.4 (0.7-1.1cm)LVDd4.9 (3.9-5.9cm) PWd1.6 (0.7-1.1cm)LVDs3.4 (2.5-4.0cm) FS (%) 31.1 %LVEF (%)58.6 (>50%) M-Mode DIMENSIONS Aortic Root3.60 (2.2-3.7cm)Aortic Cusp Exc.2.30 (1.5-2.0cm) Aortic Valve AoV Peak Htjfiszg737.0cm/Elise Peak GR.6mmHg Mitral Valve MV E Amcrewza05.2cm/sMV A Gnbulkzx85.1cm/sE/A ratio0.8 TDI E/Lateral E'0.0E/Medial E'0.0 Pulmonary Valve PV Peak Ztzeispp14.9cm/sPV Peak Grad.3mmHg Tricuspid Valve TR Peak Jfjnesjt902ab/sRAP [id number] Peak Gr.22mmHg [id number] LEFT VENTRICLE The left ventricle is normal size. There is mild concentric left ventricular hypertrophy. The left ventricular function is normal.EF-55-60% There is normal LV segmental wall motion. Transmitral Doppler flow pattern is Grade III-reversible restrictive diastolic dysfunction. No left ventricle thrombus noted on this study. There is no ventricular septal defect visualized. There is no left ventricular aneurysm. There is no mass noted in the left ventricle. RIGHT VENTRICLE The right ventricle is normal size. There is normal right ventricular wall thickness. The right ventricular systolic function is normal. ATRIA The left atrium size is normal. The right atrium size is normal. The interatrial septum is intact with no evidence for an atrial septal defect. AORTIC VALVE The aortic valve is thickened but opens well. There is trace aortic regurgitation. There is no aortic valvular stenosis. There is no aortic valvular vegetation. MITRAL VALVE The mitral valve is thickened but opens well. Mitral regurgitation is trace. There is no mitral valve stenosis. There is no evidence of mitral valve prolapse. TRICUSPID VALVE The tricuspid valve leaflets are thickened , but open well. There is trace tricuspid regurgitation. There is no tricuspid valve stenosis. There is no tricuspid valve prolapse or vegetation. PULMONIC VALVE The pulmonary valve is normal in structure. There is trace pulmonic valvular regurgitation. There is no pulmonic valvular stenosis. GREAT VESSELS The aortic root is normal in size. The ascending aorta is normal in size. The pulmonary artery is normal. The IVC is normal in size and collapses >50% with inspiration. PERICARDIAL EFFUSION There is no pleural effusion. There is no pericardial effusion. <Conclusion> Normal chamber Size., EF-55-60% Trace MR/TR/ PI/AR RVSP-32 mmof Hg. There is no pericardial effusion. The IVC is normal in size and collapses >50% with inspiration. no thrombus or vegetation noted.
--- NOTE | 2016-12-27 04:22 | PN ---
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 He has a history of diabetes mellitus, congestive heart failure, hypertension, hypothyroidism, gout, PE with status post IVC filter, degenerative joint disease, and chronic pain as well as morbid obesity. The patient's gabapentin was adjusted to 600 mg b.i.d. and his opioids were being tapered. His blood sugar earlier in the day was 199 mg%. Psychotropically, the patient is on Xanax 2 mg t.i.d. p.r.n. and oxycodone 80 mg q. 12 hours and 30 mg q. 4 hours p.r.n. PHYSICAL EXAMINATION: VITAL SIGNS: Blood pressure is 157/76, pulse 70, temperature 98.6, respiratory rate 20. Irving Pagan MD/ PhD
== END 2016-12-26 18:24 | disposition home or self-care (01) ==
LOC: ED 17:55 → ERH 12-25 00:12 → 2RSO 12-25 02:44
PROVIDERS: ADMIT Internal Medicine Nephrology; ATTEND Internal Medicine Nephrology
DX: E11.42 Type 2 diabetes mellitus with diabetic polyneuropathy (principal); R26.81 Unsteadiness on feet; M62.82 Rhabdomyolysis; R53.1 Weakness; R55 Syncope and collapse; G89.4 Chronic pain syndrome; J44.9 Chronic obstructive pulmonary disease, unspecified; E11.21 Type 2 diabetes mellitus with diabetic nephropathy; N18.3 Chronic kidney disease, stage 3 (moderate); E03.9 Hypothyroidism, unspecified; E78.5 Hyperlipidemia, unspecified; E11.51 Type 2 diabetes mellitus with diabetic peripheral angiopathy without gangrene; M19.90 Unspecified osteoarthritis, unspecified site; I13.0 Hypertensive heart and chronic kidney disease with heart failure and stage 1 through stage 4 chronic kidney disease, or unspecified chronic kidney disease; I50.9 Heart failure, unspecified; M51.9 Unspecified thoracic, thoracolumbar and lumbosacral intervertebral disc disorder; M10.9 Gout, unspecified; F41.9 Anxiety disorder, unspecified; M48.00 Spinal stenosis, site unspecified; Z86.718 Personal history of other venous thrombosis and embolism; E66.01 Morbid (severe) obesity due to excess calories; Z68.36 Body mass index [BMI] 36.0-36.9, adult; Z79.891 Long term (current) use of opiate analgesic; Z86.711 Personal history of pulmonary embolism; Z79.84 Long term (current) use of oral hypoglycemic drugs
CPT/HCPCS: 36415; 70450; 71010; 78452; 80053; 80061; 80320; 80324; 80345; 80346; 80349; 80353; 80358; 80361; 82550; 82553; 82948; 83036; 83615; 83735; 83992; 84100; 84443; 84484; 85025; 85027; 85610; 85730; 93005; 93017; 93306; 96360; 97116; 97162; 99285; A9502; G0378; G8978; G8979; J7040

== ENCOUNTER 2017-01-23 11:19 | Inpatient (IN) | payer OTHER, MEDICARE ==
[2017-01-23 11:30] VITALS: BMI 40.1
[2017-01-23] MEDS ORDERED: Sodium Chloride 0.9% 1,000 ML IV STA (11:46)
--- NOTE | 2017-01-23 11:47 | ED PDOC ---
Arrival/HPI - General Chief Complaint: Trauma Time Seen by Provider: 01/23/17 11:22 Historian: Patient - History of Present Illness Narrative History of Present Illness (Text): 01/23/17 11:32 A 61 year old male, whose past medical history includes COPD, diabetes, hypertension, gout, DVT with IVC filter, and chronic back pain, was brought in by EMS and presents to the emergency department complaining of fall this morning. Patient reports his neighbor helped him into bed. He states when he woke up a couple hours later to use the bathroom, he passed out and hit the area below his left eye and jaw. Patient notes experiencing dizziness, but denies of any fever, chills, nausea, vomiting, diarrhea, abdominal pain, chest pain, shortness of breath, or any other complaints. No eye or jaw pain. Also, patient mentions he normally uses a walker help him ambulate. PMD: Dr. Molina Time/Duration: Other (this morning) Symptom Onset: Sudden Symptom Course: Unchanged Context: Home Past Medical History - Provider Review Nursing Documentation Reviewed: Yes - Infectious Disease Hx of Infectious Diseases: None - Tetanus Immunization Tetanus Immunization: Unknown - Cardiac Hx Cardiac Disorders: Yes Hx Congestive Heart Failure: Yes Hx Hypertension: Yes - Pulmonary Hx Chronic Obstructive Pulmonary Disease (COPD): Yes - Neurological Hx Neurological Disorder: No - HEENT Hx HEENT Disorder: No - Renal Hx Renal Disorder: No - Endocrine/Metabolic Hx Diabetes Mellitus Type 2: Yes Hx Hypothyroidism: Yes - Hematological/Oncological Hx Blood Disorders: Yes Hx Cancer: Yes - Integumentary Hx Dermatological Disorder: Yes Other/Comment: Redness in abdominal folds - Musculoskeletal/Rheumatological Hx Musculoskeletal Disorders: Yes Hx Degenerative Joint Disease: Yes Hx Falls: Yes Hx Gout: Yes Hx Herniated Disk: Yes Hx Osteomyelitis: Yes Hx Spinal Stenosis: Yes Hx Unsteady Gait: Yes (uses cane) - Gastrointestinal Hx Gastrointestinal Disorders: No - Genitourinary/Gynecological Hx Hematuria: Yes Hx Prostate Problems: Yes - Psychiatric Hx Psychophysiologic Disorder: No Hx Substance Use: No - Surgical History Hx 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) Hx Cardiac Catheterization: No Hx Coronary Stent: No - Anesthesia Hx Anesthesia: Yes Hx Anesthesia Reactions: No Hx Malignant Hyperthermia: No - Suicidal Assessment Feels Threatened In Home Enviroment: No Family/Social History - Physician Review Nursing Documentation Reviewed: Yes Family/Social History: No Known Family HX Smoking Status: Never Smoked Hx Alcohol Use: No Hx Substance Use: No Hx Substance Use Treatment: No Allergies/Home Meds Allergies/Adverse Reactions: Allergies cephalexin monohydrate [From Keflex] Allergy (Verified 12/20/15 14:26) RASH Penicillins Allergy (Verified 01/23/17 11:33) RASH Home Medications: Home Meds Medication Instructions Recorded Confirmed Alprazolam [Xanax] 2 mg PO TID 10/12/11 01/23/17 Atorvastatin [Lipitor] 40 mg PO DAILY 10/12/11 01/23/17 Oxycodone HCl [Roxicodone] 30 mg PO Q4 10/12/11 01/23/17 Carisoprodol [Soma] 350 mg PO TID 10/30/15 01/23/17 Levothyroxine Sodium 1.75 mg PO DAILY 10/30/15 01/23/17 [Levothyroxine Sodium] Oxycodone HCl [Oxycontin] 80 mg PO Q8 10/30/15 01/23/17 metFORMIN [glucOPHAGE] 500 mg PO BID 10/30/15 01/23/17 Albuterol Sulfate [Proair Hfa] 2 puff IH Q6 PRN 01/23/17 01/23/17 Glipizide [Glucotrol] 10 mg PO BID 01/23/17 01/23/17 Indomethacin [Indocin] 50 mg PO BID 01/23/17 01/23/17 Omeprazole Magnesium [Prilosec] 40 mg PO DAILY 01/23/17 01/23/17 Pregabalin [Lyrica] 300 mg PO BID 01/23/17 01/23/17 Solifenacin Succinate [Vesicare] 5 mg PO DAILY 01/23/17 01/23/17 Review of Systems - Physician Review All systems were reviewed & negative as marked: Yes - Review of Systems Constitutional: absent: Fevers, Night Sweats Eyes: absent: Vision Changes Respiratory: absent: SOB Cardiovascular: Syncope. absent: Chest Pain Gastrointestinal: absent: Abdominal Pain, Diarrhea, Nausea, Vomiting Neurological: Dizziness Physical Exam Vital Signs Reviewed: Yes Vital Signs Temp Pulse Resp BP Pulse Ox 01/23/17 13:19 91 H 18 122/68 95 01/23/17 11:29 98.2 F 103 H 18 124/72 95 Temperature: Afebrile Blood Pressure: Normal Pulse: Tachycardic Respiratory Rate: Normal Appearance: Positive for: Well-Appearing, Non-Toxic, Comfortable Pain Distress: None Mental Status: Positive for: Alert and Oriented X 3 Finger Stick Blood Glucose: 305 - Systems Exam Head: Present: Normocephalic, Other (small linear abrasion in the left infra- orbital area; no swelling or tenderness) Pupils: Present: PERRL Conjunctiva: Present: Normal Mouth: Present: Dry Pharnyx: Present: Normal. No: ERYTHEMA, EXUDATE Neck: Present: Normal Range of Motion Respiratory/Chest: Present: Clear to Auscultation Cardiovascular: Present: Normal S1, S2, Tachycardic Abdomen: Present: Normal Bowel Sounds. No: Tenderness, Distention, Peritoneal Signs Back: Present: Normal Inspection Upper Extremity: Present: Normal Inspection. No: Cyanosis, Edema Lower Extremity: Present: Other (bilateral abrasion to anterior knees). No: Edema, CALF TENDERNESS Neurological: Present: GCS=15, CN II-XII Intact, Speech Normal, Motor Func Grossly Intact Skin: Present: Warm, Dry, Normal Color. No: Rashes Psychiatric: Present: Oriented x 3 Medical Decision Making ED Course and Treatment: 01/23/17 11:40 Impression: 61 year old male with fall, syncope, and dizziness. Physical exam shows bilateral abrasion to anterior knees; lungs clear; heart rate regular; abdomen nontender. Differential Diagnosis included but are not limited to: Electrolyte Abnormalitiy vs. Dehydration vs. Cardiogenic vs. Neurogenic Syncope Plan: -- EKG -- Chest X-ray -- Bilateral Knee X-Ray -- Lumbar Spine CT -- Brain CT -- Labs -- Urinalysis -- IV Fluids -- Reassess and disposition Prior Visits: Notes and results from previous visits were reviewed. Patient was last seen in the emergency department on 12/24/2016 for a syncopal episode. Patient was admitted. Progress Notes: EKG: Ordered, reviewed, and independently interpreted the EKG. Rate : 102 BPM Rhythm : Sinus tachycardia Interpretation : QRS is 102. No ST-segment elevations or depressions, slight peaked T waves, no T-wave inversions, normal intervals. Comparison : No previous EKG for comparison. 01/23/2017 13:[address] IMPRESSION: No interval hemorrhage or mass effect. Chronic changes Dictator : Cece Galvan V. 01/23/2017 13:14 Bilateral Knee X-Ray IMPRESSION: No fracture or dislocation. Mild osteoarthrosis -each medial femoral tibial compartment most notably affected in right greater than left Dictator : Cece Galvan V. 01/23/2017 13:15 Chest X-ray IMPRESSION: Interval pathology noted Dictator : Cece Galvan V. 01/23/2017 13:[address] IMPRESSION: Severe stenosis L3-4. Moderate to severe stenosis at L4-5. Severe foraminal stenosis at L5-S1 bilaterally Dictator : Bret Alegria MD 01/23/17 14:29 Imaging as noted with no acute findings. Patient with syncope with unremarkable neuro exam; EKG is unremarkable as well. Labs with initial K of 7.3; stated as non-hemolyzed -ordered calcium, insulin, and kayexalate. Repeat K is 5.3; discussed case with Dr. Molina - will place on tele on observation, given syncope. - Lab Interpretations Lab Results: 01/23/17 11:59 01/23/17 13:59 Lab Results 01/23/17 13:59: Sodium 138, Potassium 5.3 H, Chloride 104, Carbon Dioxide 24, Anion Gap 15, BUN 35 H, Creatinine 2.0 H, Est GFR ( Amer) 41, Est GFR ( Non-Af Amer) 34, Random Glucose 257 H, Calcium 9.3 01/23/17 11:59: Sodium 136, Potassium 7.3 H* D, Chloride 101, Carbon Dioxide 23 , Anion Gap 19, BUN 37 H, Creatinine 2.2 H, Est GFR ( Amer) 37, Est GFR ( Non-Af Amer) 31, Random Glucose 334 H* D, Calcium 9.5, Magnesium 1.6 L, Total Bilirubin 1.0, AST 36, ALT 43, Alkaline Phosphatase 122, Lactate Dehydrogenase 755 H, Total Creatine Kinase 244 H, CK-MB (CK-2) 2.2, CK-MB (CK-2) % Cancelled, Troponin I 0.03 D, Total Protein 8.0, Albumin 4.4, Globulin 3.6, Albumin/ Globulin Ratio 1.2, Lipase 50 01/23/17 11:59: PT 10.2, INR 0.94, APTT 25.0 01/23/17 11:59: WBC 11.3 H D, RBC 4.60, Hgb 13.2 L D, Hct 40.5 L, MCV 88.0, MCH 28.7, MCHC 32.6, RDW 13.3, Plt Count 223, MPV 10.9, Gran % 83.2 H, Lymph % (Auto ) 10.6 L, [place] % (Auto) 6.1 H, Eos % (Auto) 0.0 L, Baso % (Auto) 0.1, Gran # 9.43 H, Lymph # 1.2, [place] # 0.7 H, Eos # 0.0, Baso # 0.01 I have reviewed the lab results: Yes - RAD Interpretation Radiology Orders: 01/23/17 11:42 KNEE W PATELLA BILAT 3 VIEW [RAD] Stat 01/23/17 11:43 Brain [HEAD W/O CONTRAST] [CT] Stat 01/23/17 11:45 CHEST ONE VIEW [RAD] Stat 01/23/17 12:30 LUMBAR SPINE W/O CONTRAST [CT] Stat - Medication Orders Current Medication Orders: Magnesium Sulfate 2 gm/ Sodium (Chloride) 104 mls @ 102 mls/hr IV ONCE ONE Stop: 01/23/17 15:20 Discontinued Medications Sodium Chloride (Sodium Chloride 0.9%) 1,000 mls @ 999 mls/hr IV .Q1H1M STA Stop: 01/23/17 12:46 Last Admin: 01/23/17 12:05 Dose: 999 mls/hr Calcium Gluconate 1,000 mg/ (Sodium Chloride) 110 mls @ 110 mls/hr IVPB ONCE ONE Stop: 01/23/17 13:29 Last Admin: 01/23/17 13:15 Dose: 110 mls/hr Insulin Human Regular (Humulin R) 8 units IVP ONCE STA Stop: 01/23/17 12:17 Last Admin: 01/23/17 13:13 Dose: 8 units Sodium Polystyrene Sulfonate (Kayexalate Oral Susp) 30 gm PO STAT STA Stop: 01/23/17 12:18 Last Admin: 01/23/17 13:15 Dose: 30 gm - Scribe Statement The provider has reviewed the documentation as recorded by the Vanessa Barajas Provider Dejonibe Attestation: All medical record entries made by the Dejonibthierry were at my direction and personally dictated by me. I have reviewed the chart and agree that the record accurately reflects my personal performance of the history, physical exam, medical decision making, and the department course for this patient. I have also personally directed, reviewed, and agree with the discharge instructions and disposition. Disposition/Present on Arrival - Present on Arrival Any Indicators Present on Arrival: Yes History of DVT/PE: Yes History of Uncontrolled Diabetes: Yes Urinary Catheter: No History of Decub. Ulcer: No History Surgical Site Infection Following: None - Disposition Have Diagnosis and Disposition been Completed?: Yes Diagnosis: Syncope Disposition: HOSPITALIZED Disposition Time: 12:17 Patient Plan: Observation, Telemetry Condition: FAIR Discharge Instructions (ExitCare): Syncope (ED) Referrals: PCP,NO [Non-Staff] - Follow up with primary Forms: Open Wager (Latvian)
[2017-01-23 12:13] LABS: ALB/GLOB RATIO 1.2 (1.1-1.8); CALCIUM 9.5 mg/dL (8.4-10.5); MAGNESIUM 1.6 mg/dL (1.7-2.2)
[2017-01-23 12:15] LABS: INR 0.94 (0.93-1.08)
[2017-01-23 12:16] LABS: BASO # 0.01 K/mm3 (0.0-2.0); BASO % 0.1 % (0.0-3.0); GRAN # 9.43 (1.4-6.5); GRAN % 83.2 % (50.0-68.0); HEMATOCRIT 40.5 % (42.0-52.0); LYMPH # 1.2 (1.2-3.4); LYMPH % 10.6 % (22.0-35.0); MEAN CORPUSCULAR HEMOGLOBIN 28.7 pg (25.0-35.0); MEAN CORPUSCULAR HGB CONC 32.6 g/dl (31.0-37.0); MEAN PLATELET VOLUME 10.9 fl (7.0-11.0); MONO # 0.7 (0.1-0.6); MONO % 6.1 % (1.0-6.0); POTASSIUM 7.3 mmol/L (3.6-5.0); RED CELL DISTRIBUTION WIDTH 13.3 % (11.5-14.5); WHITE BLOOD COUNT 11.3 10^3/ul (4.5-11.0)
[2017-01-23] MEDS ORDERED: Insulin Regular 1 UNITS/0.01 ML ML IVP STA (12:16)
[2017-01-23] MEDS ORDERED: Sod Polystyrene Sulf 15 gm/60 ml Oral Susp PO STA (12:17)
[2017-01-23 12:25] LABS: TROPONIN I 0.03 ng/mL
--- NOTE | 2017-01-23 13:12 | CT ---
PROCEDURE: CT HEAD WITHOUT CONTRAST. HISTORY: syncope, fall COMPARISON: 12/24/2016 TECHNIQUE: Axial computed tomography images were obtained through the head/brain without intravenous contrast. Radiation dose: Total exam DLP = 825 mGy-cm. This CT exam was performed using one or more of the following dose reduction techniques: Automated exposure control, adjustment of the mA and/or kV according to patient size, and/or use of iterative reconstruction technique. FINDINGS: HEMORRHAGE: No intracranial hemorrhage. BRAIN: No interval mass effect or edema. Prior cerebral atrophy or chronic microvascular ischemic changes- similar. Right cerebellar wedge-shaped hypodensity -similar consistent with prior infarct VENTRICLES: Mild hydrocephalus consistent with atrophy and age. CALVARIUM: Unremarkable. PARANASAL SINUSES: Trace posterior flat right maxillary sinus retention cyst. No significant inflammatory changes. MASTOID AIR CELLS: Unremarkable as visualized. No inflammatory changes. OTHER FINDINGS: None. IMPRESSION: No interval hemorrhage or mass effect. Chronic changes
--- NOTE | 2017-01-23 13:16 | RAD ---
PROCEDURE: Bilateral Knee Radiographs. HISTORY: b/l Knee pain s/p fall COMPARISON: None. FINDINGS: BONES: No fracture. Each medial femoral tibial joint spaces narrowed. Greater right knee medial knee joint line spurring. JOINTS: Bilateral mild osteoarthrosis right greater than left SOFT TISSUES: Right Knee: Normal. Left Knee: Normal. JOINT EFFUSION: Right Knee: None. Left Knee: None. OTHER FINDINGS: None. IMPRESSION: No fracture or dislocation. Mild osteoarthrosis -each medial femoral tibial compartment most notably affected in right greater than left
--- NOTE | 2017-01-23 13:17 | RAD ---
PROCEDURE: CHEST RADIOGRAPH, 1 VIEW HISTORY: syncope COMPARISON: 12/24/2016 FINDINGS: LUNGS: Clear. PLEURA: No pneumothorax or pleural fluid seen. CARDIOVASCULAR: Normal. OSSEOUS STRUCTURES: Moderate thoracic spondylosis VISUALIZED UPPER ABDOMEN: Normal. OTHER FINDINGS: The asymmetrically elevated right hemidiaphragm is unchanged IMPRESSION: Interval pathology noted
--- NOTE | 2017-01-23 13:38 | CT ---
PROCEDURE: CT Lumbar Spine without contrast HISTORY: LOWER BACK PAIN COMPARISON: None. TECHNIQUE: Axial computed tomography images were obtained of the lumbar spine without the use of intravenous contrast. Coronal and sagittal reformatted images were created and reviewed. Radiation dose: Total exam DLP = 1530 mGy-cm. This CT exam was performed using one or more of the following dose reduction techniques: Automated exposure control, adjustment of the mA and/or kV according to patient size, and/or use of iterative reconstruction technique. FINDINGS: VERTEBRAE: Unremarkable. No fracture. Normal alignment. DISCS/SPINAL CANAL/NEURAL FORAMINA: L1-2: Unremarkable. L2-3: Large left-sided osteophyte at L2 and L3 L3-4: Moderate diffuse disc bulge. Severe facet arthropathy. Severe stenosis L4-5: Disc degeneration with large left-sided osteophyte. Moderate to severe central stenosis L5-S1: There is severe foraminal stenosis secondary to bony osteophytes arising from the facet joints and vertebral endplates PARASPINAL SOFT TISSUES: Unremarkable. OTHER FINDINGS: None. IMPRESSION: Severe stenosis L3-4. Moderate to severe stenosis at L4-5. Severe foraminal stenosis at L5-S1 bilaterally
[2017-01-23 14:11] LABS: CALCIUM 9.3 mg/dL (8.4-10.5); POTASSIUM 5.3 mmol/L (3.6-5.0)
[2017-01-23] MEDS ORDERED: Magnesium Sulfate 2 GM in Sodium Chloride 0.9% 100 ML IV ONE (14:19)
--- NOTE | 2017-01-23 17:05 | CARD ---
APPROVED REPORT EKG Measurement Heart [id number] <Conclusion> Sinus tachycardia Otherwise normal ECG
[2017-01-23] MEDS: oxyCODONE 30 mg Immediate Release Tab PO PRN (18:59)
[2017-01-23 19:30] LABS: URINE BILIRUBIN NEGATIVE (NEGATIVE); URINE BLOOD TRACE-INTACT (NEGATIVE); URINE GLUCOSE (UA) 500 mg/dL (NEGATIVE); URINE KETONE TRACE mg/dL (NEGATIVE); URINE LEUKOCYTE ESTERASE NEGATIVE Leu/uL (NEGATIVE); URINE PROTEIN 30 mg/dL (<30 mg/dL); URINE UROBILINOGEN 0.2 E.U./dL (<1 E.U./dL)
[2017-01-23 19:36] LABS: URINE APPEARANCE CLEAR (CLEAR); URINE COLOR YELLOW (YELLOW)
[2017-01-23 19:41] LABS: URINE RBC NEGATIVE /hpf (0-2); URINE WBC NEGATIVE /hpf (0-6)
[2017-01-23] MEDS ORDERED: Pneumococcal 23-Valent Vaccine IM ONE (20:41)
[2017-01-24 07:24] LABS: HEMATOCRIT 34.6 % (42.0-52.0); MEAN CELL VOLUME 87.8 fl (80.0-105.0); MEAN CORPUSCULAR HEMOGLOBIN 27.9 pg (25.0-35.0); MEAN CORPUSCULAR HGB CONC 31.8 g/dl (31.0-37.0); RED CELL DISTRIBUTION WIDTH 13.5 % (11.5-14.5); WHITE BLOOD COUNT 7.5 10^3/ul (4.5-11.0)
[2017-01-24 07:45] LABS: ALB/GLOB RATIO 1.1 (1.1-1.8); BILIRUBIN,TOTAL 1.1 mg/dL (0.2-1.3); CALCIUM 8.9 mg/dL (8.4-10.5); PHOSPHOROUS 3.7 mg/dL (2.5-4.5); POTASSIUM 4.1 mmol/L (3.6-5.0); TOTAL PROTEIN 6.6 g/dL (5.8-8.3)
[2017-01-24] MEDS: oxyCODONE 30 mg Immediate Release Tab PO PRN (09:00)
[2017-01-24] MEDS ORDERED: Levothyroxine 100 MCG TAB PO SCH (10:00)
[2017-01-24] MEDS: Sodium Chloride 0.9% 1,000 ML IV SCH ×3 (12:54→23:16)
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
--- NOTE | 2017-01-24 19:21 | CP.PCM.CON ---
<Eduar Muir - Last Filed: 01/24/17 18:37> History of Present Illness - History of Present Illness History of Present Illness: Neurology Consult Note for Dr. Rapp Service Consulted for: Syncope This is a 61 yo M with PMH of COPD, HTN, poorly controlled DM, gout, DVT s/p IVC filter, and chronic back pain 2/2 spinal stenosis who presents with complaint of syncopal episode after urinating in his bathroom and then returning to his bedroom. As per patient, he blacked out for a few seconds without warning, and hit his head off the doorknob to the bathroom. His girlfriend and a neighbor were able to arouse him and helped him to bed, but then he attempted to get out of bed and fell again, getting wedged between his nightstand and his cabinet. EMS was then called, and he was brought to the hospital. He reports no recall of either fall, but has full memory of events immediately before and after the fall. Denies chest pain, shortness of breath, current dizziness/room-spinning, vision changes, focal weakness, nausea/emesis, diarrhea, dysuria/constipation. Admits to some bilateral LE paresthesia, longstanding, 2/2 diabetes, no acute changes or worsening reported. All other ROS in 12-point system review negative. PMH: as above PSH: 4th and 5th R fingers FHx: doesn't know SHx: denies tobacco, alcohol, illicits/IVDA PMD: Dr. Walker Review of Systems - Review of Systems All systems: reviewed and no additional remarkable complaints except (as per HPI ) Past Patient History - Infectious Disease Hx of Infectious Diseases: None - Tetanus Immunizations Tetanus Immunization: Unknown - Past Social History Smoking Status: Never Smoked - CARDIAC Hx Cardiac Disorders: Yes (dvt with ivc filter) Hx Congestive Heart Failure: Yes Hx Hypertension: Yes - PULMONARY Hx Chronic Obstructive Pulmonary Disease (COPD): Yes - NEUROLOGICAL Hx Neurological Disorder: (syncvope) - HEENT Hx HEENT Problems: No - RENAL Hx Chronic Kidney Disease: No - ENDOCRINE/METABOLIC Hx Diabetes Mellitus Type 2: Yes Hx Hypothyroidism: Yes - HEMATOLOGICAL/ONCOLOGICAL Hx Blood Disorders: Yes Hx Cancer: (pt denies hx of cancer) - INTEGUMENTARY Hx Dermatological Problems: Yes Other/Comment: Redness in abdominal folds, b/l knee abrasions,left eye periorbital abrasion, left scalp abrasion, dry skin ble - MUSCULOSKELETAL/RHEUMATOLOGICAL Hx Musculoskeletal Disorders: Yes Hx Back Pain: Yes (upper and lower) Hx Degenerative Joint Disease: Yes Hx Falls: Yes Hx Gout: Yes (feet and legs) Hx Herniated Disk: Yes Hx Osteomyelitis: Yes Hx Spinal Stenosis: Yes Hx Unsteady Gait: Yes (uses cane) Other/Comment: neck pain - GASTROINTESTINAL Hx Gastrointestinal Disorders: No - GENITOURINARY/GYNECOLOGICAL Hx Hematuria: Yes Hx Prostate Problems: Yes (retention) - PSYCHIATRIC Hx Psychophysiologic Disorder: No Hx Substance Use: No - SURGICAL HISTORY Hx 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/work related) Hx Cardiac Catheterization: No Hx Coronary Stent: No - ANESTHESIA Hx Anesthesia: Yes Hx Anesthesia Reactions: No Hx Malignant Hyperthermia: No Meds Allergies/Adverse Reactions: Allergies Allergy/AdvReac Type Severity Reaction Status Date / Time cephalexin monohydrate Allergy RASH Verified 12/20/15 14:26 [From Keflex] Penicillins Allergy RASH Verified 01/23/17 11:33 - Medications Medications: Current Medications Alprazolam (Xanax) 1 mg PO TID [facility] Last Admin: 01/24/17 18:01 Dose: 1 mg Atorvastatin Calcium (Lipitor) 40 mg PO DAILY [facility] Last Admin: 01/24/17 09:00 Dose: 40 mg Glipizide (Glucotrol) 10 mg PO BID [facility] Last Admin: 01/24/17 18:01 Dose: 10 mg Sodium Chloride (Sodium Chloride 0.9%) 1,000 mls @ 100 mls/hr IV .Q10H [facility] Stop: 01/24/17 23:00 Last Admin: 01/24/17 12:54 Dose: 100 mls/hr Sodium Chloride (Sodium Chloride 0.9%) 1,000 mls @ 50 mls/hr IV .Q20H [facility] Stop: 01/25/17 23:59 Oxycodone HCl (Oxycodone Immediate Release Tab) 30 mg PO Q4 PRN PRN Reason: Pain, moderate (4-7) Last Admin: 01/24/17 09:00 Dose: 30 mg Pregabalin (Lyrica) 300 mg PO BID [facility] Last Admin: 01/24/17 18:01 Dose: 300 mg Physical Exam - Constitutional Appears: Well, Non-toxic, No Acute Distress, Chronically Ill - Head Exam Head Exam: ATRAUMATIC, NORMAL INSPECTION, NORMOCEPHALIC - Eye Exam Eye Exam: EOMI, Normal appearance, PERRL. absent: Conjunctival injection, Scleral icterus Pupil Exam: NORMAL ACCOMODATION, PERRL. absent: Fixed, Irregular, Unequal - ENT Exam ENT Exam: Mucous Membranes Moist. absent: Mucous Membranes Dry - Neck Exam Neck exam: Positive for: Full Rom, Normal Inspection - Respiratory Exam Respiratory Exam: Decreased Breath Sounds (mild decreased breath sounds in all harrell), Clear to Auscultation Bilateral, NORMAL BREATHING PATTERN. absent: Accessory Muscle Use, Chest Wall Tenderness, Rales, Rhonchi, Wheezes - Cardiovascular Exam Cardiovascular Exam: REGULAR RHYTHM, RRR, +S1, +S2. absent: Bradycardia, Tachycardia, Irregular Rhythm, +S4 - GI/Abdominal Exam GI & Abdominal Exam: Normal Bowel Sounds, Soft. absent: Diminished Bowel Sounds , Distended, Firm, Hyperactive Bowel Sounds, Hypoactive Bowel Sounds, Rigid, Tenderness - Extremities Exam Extremities exam: Positive for: full ROM, pedal edema (+2 pitting edema in bilateral LE from mid-feet to mid-shins). Negative for: calf tenderness, joint swelling, tenderness - Neurological Exam Additional comments: awake and alert, following all commands appropriately, moving all extremities spontaneously 4/5 motor strength in bilateral LE and UE, 4/5 bobbin doffer strength bilaterally sensory and motor grossly intact and equal bilaterally - Psychiatric Exam Psychiatric exam: Normal Affect, Normal Mood - Skin Skin Exam: Dry, Intact, Normal Color, Warm Results - Vital Signs Recent Vital Signs: Last Vital Signs Temp 97.5 F L 01/24/17 16:54 Pulse 68 01/24/17 18:00 Resp 18 01/24/17 16:54 BP 133/74 01/24/17 16:54 Pulse Ox 94 L 01/24/17 05:58 - Labs Result Diagrams: 01/24/17 06:45 01/24/17 06:45 Labs: Laboratory Results - last 24 hr 01/23/17 01/23/17 01/23/17 19:22 19:22 21:12 WBC RBC Hgb Hct MCV MCH MCHC RDW Plt Count MPV Sodium Potassium Chloride Carbon Dioxide Anion Gap BUN Creatinine Est GFR ( Amer) Est GFR (Non-Af Amer) POC Glucose (mg/dL) 328 H Random Glucose Calcium Phosphorus Magnesium Total Bilirubin AST ALT Alkaline Phosphatase Total Protein Albumin Globulin Albumin/Globulin Ratio Urine Color Yellow Urine Appearance Clear Urine pH 5.0 Ur Specific [place] 1.025 Urine Protein 30 H Urine Glucose (UA) 500 H Urine Ketones Trace H Urine Blood Trace-intact H Urine Nitrate Negative Urine Bilirubin Negative Urine Urobilinogen 0.2 Ur Leukocyte Esterase Negative Urine RBC Negative Urine WBC Negative Hyaline Casts 0 - 2 Urine Opiates Screen Positive H Urine Methadone Screen Negative Ur Barbiturates Screen Negative Ur Phencyclidine Scrn Negative Ur Amphetamines Screen Negative U Benzodiazepines Scrn Positive H U Oth Cocaine Metabols Negative U Cannabinoids Screen Negative 01/24/17 01/24/17 01/24/17 06:45 06:45 07:32 WBC 7.5 D RBC 3.94 Hgb 11.0 L D Hct 34.6 L MCV 87.8 MCH 27.9 MCHC 31.8 RDW 13.5 Plt Count 167 MPV 10.0 Sodium 140 Potassium 4.1 Chloride 102 Carbon Dioxide 29 Anion Gap 13 BUN 34 H Creatinine 1.7 H Est GFR ( Amer) 50 Est GFR (Non-Af Amer) 41 POC Glucose (mg/dL) 251 H Random Glucose 228 H Calcium 8.9 Phosphorus 3.7 Magnesium 2.0 Total Bilirubin 1.1 AST 27 ALT 33 Alkaline Phosphatase 87 Total Protein 6.6 Albumin 3.5 Globulin 3.1 Albumin/Globulin Ratio 1.1 Urine Color Urine Appearance Urine pH Ur Specific [place] Urine Protein Urine Glucose (UA) Urine Ketones Urine Blood Urine Nitrate Urine Bilirubin Urine Urobilinogen Ur Leukocyte Esterase Urine RBC Urine WBC Hyaline Casts Urine Opiates Screen Urine Methadone Screen Ur Barbiturates Screen Ur Phencyclidine Scrn Ur Amphetamines Screen U Benzodiazepines Scrn U Oth Cocaine Metabols U Cannabinoids Screen 01/24/17 01/24/17 12:18 16:10 WBC RBC Hgb Hct MCV MCH MCHC RDW Plt Count MPV Sodium Potassium Chloride Carbon Dioxide Anion Gap BUN Creatinine Est GFR ( Amer) Est GFR (Non-Af Amer) POC Glucose (mg/dL) 288 H 211 H Random Glucose Calcium Phosphorus Magnesium Total Bilirubin AST ALT Alkaline Phosphatase Total Protein Albumin Globulin Albumin/Globulin Ratio Urine Color Urine Appearance Urine pH Ur Specific [place] Urine Protein Urine Glucose (UA) Urine Ketones Urine Blood Urine Nitrate Urine Bilirubin Urine Urobilinogen Ur Leukocyte Esterase Urine RBC Urine WBC Hyaline Casts Urine Opiates Screen Urine Methadone Screen Ur Barbiturates Screen Ur Phencyclidine Scrn Ur Amphetamines Screen U Benzodiazepines Scrn U Oth Cocaine Metabols U Cannabinoids Screen Assessment & Plan - Assessment and Plan (Free Text) Assessment: This is a 61 yo M with PMH of COPD, HTN, poorly controlled DM, gout, DVT s/p IVC filter, and chronic back pain 2/2 spinal stenosis who presents with complaint of syncopal episode after urinating in his bathroom and then returning to his bedroom. His syncopal episode was likely vasovagal, given the occurrence right after urination. He may also orthostatic element 2/2 autonomic dysregulation in the setting of underlying and poorly controlled diabetes (last A1c: 12) with significant diabetic neuropathy. CT head was negative for acute issue. His gait dysfunction is likely due to his diabetic neuropathy as well as his known lumbar stenosis. He will need PT as an outpatient, and we will obtain an MRI of his lumbar spine to rule out worsening of the stenosis. Plan: 1) MRI lumbar spine, f/u 2) Maintain Blood glucose 140-180, continue home lyrica for diabetic neuropathy 3) Gentle hydration 4) PT/OT, rec outpatient PT after discharge Patient seen, reviewed, and discussed with attending, Dr. Rapp. <Shai Rapp - Last Filed: 01/25/17 12:55> Meds - Medications Medications: Current Medications Alprazolam (Xanax) 1 mg PO TID [facility] Last Admin: 01/25/17 09:40 Dose: 1 mg Atorvastatin Calcium (Lipitor) 40 mg PO DAILY [facility] Last Admin: 01/25/17 09:40 Dose: 40 mg Glipizide (Glucotrol) 10 mg PO BID [facility] Last Admin: 01/25/17 09:40 Dose: 10 mg Sodium Chloride (Sodium Chloride 0.9%) 1,000 mls @ 50 mls/hr IV .Q20H [facility] Stop: 01/25/17 23:59 Last Admin: 01/24/17 23:16 Dose: 50 mls/hr Insulin Human Regular (Humulin R Low) 0 units SC ACHS [facility] PRN Reason: Protocol Last Admin: 01/25/17 11:37 Dose: 3 units Oxycodone HCl (Oxycodone Immediate Release Tab) 30 mg PO Q4 PRN PRN Reason: Pain, moderate (4-7) Last Admin: 01/25/17 11:22 Dose: 30 mg Pregabalin (Lyrica) 300 mg PO BID [facility] Last Admin: 01/25/17 09:41 Dose: 300 mg Results - Vital Signs Recent Vital Signs: Last Vital Signs Temp 98.4 F 01/25/17 06:00 Pulse 89 01/25/17 10:00 Resp 20 01/25/17 06:00 BP 130/70 01/25/17 08:00 Pulse Ox 94 L 01/25/17 06:00 - Labs Result Diagrams: 01/24/17 06:45 01/24/17 06:45 Labs: Laboratory Results - last 24 hr 01/25/17 11:27 POC Glucose (mg/dL) 270 H Attending/Attestation - Attestation I have personally seen and examined this patient.: Yes I have fully participated in the care of the patient.: Yes I have reviewed all pertinent clinical information: Yes
[2017-01-24] MEDS: Insulin Reg-LOW-Coverage SC SCH (21:34)
[2017-01-25] MEDS: oxyCODONE 30 mg Immediate Release Tab PO PRN ×2 (01:54→11:22)
--- NOTE | 2017-01-25 05:11 | HP ---
CHIEF COMPLAINT AND HISTORY OF PRESENT ILLNESS: This is a 61-year-old male with a past medical history of chronic back pain, DVT with IVC filter, hypertension, diabetes type 2 and COPD. The patient is coming in because he had a fall, he had an injury to the left side of his face after he fell. He says he did believe he passed out, but he does not remember losing consciousness. He says he has been experiencing dizziness. He denies any fevers or chills. He has no chest pain, no abdominal pain, no back pain or stiffness from before. No history of frequency or nocturia. REVIEW OF SYSTEMS: All other review of symptoms are within normal limits except as mentioned. ALLERGIES: CEPHALEXIN, MONOHYDRATE AND PENICILLIN. MEDICATIONS: He is on Xanax, Lipitor, Roxicodone, Soma, levothyroxine, OxyContin and Glucophage as well as ProAir, Glucotrol, Indocin, magnesium, Lyrica, and VESIcare. PAST MEDICAL HISTORY: 1. Diabetes type 2. 2. COPD. 3. Chronic back pain, on narcotics. 4. Hypertension. 5. Hypothyroidism. 6. DVT, status post IVC filter. 7. Gout. 8. Peripheral arterial disease. 9. CKD stage III. 10. Right toe osteomyelitis. PAST SURGICAL HISTORY: Right fourth and fifth toe amputation. SOCIAL HISTORY: He does not smoke. He denies any substance abuse or alcohol. FAMILY HISTORY: Noncontributory. PHYSICAL EXAMINATION VITAL SIGNS: Temperature is 98.2, pulse of 92, blood pressure 134/76, and respirations 18. Height is 5 feet 10 inches and weight is 293 pounds, BMI is 42. GENERAL: The patient lying in bed, uncomfortable, and in no acute distress. HEENT: Atraumatic and normocephalic. Anicteric sclerae. Moist mucosa. Hostetter conjunctivae. No oral lesions. NECK: No JVD, anterior and posterior adenopathy, thyromegaly, or bruits. CARDIOVASCULAR: S1 and S2 regular. No murmur, rubs, or gallop. LUNGS: Clear to auscultation bilaterally. No wheezes, rales, or rhonchi. ABDOMEN: Bowel sounds are positive. Soft, nontender and nondistended. No hepatosplenomegaly. No rebound and no guarding EXTREMITIES: No cyanosis, clubbing, or edema. NEUROLOGIC: No facial asymmetry. Tongue is midline. No uvula deviation. Power is 5/5 upper extremity and lower extremity. Sensation intact in upper extremity and lower extremity. PSYCHIATRIC: She is awake, alert and oriented x3. No anxiety or depression. She has normal affect. GENITOURINARY: No CVA tenderness. VASCULAR: 2+ pulses in the carotid pulses and pedal pulses. SKIN: No erythema or nodules SPINE: Shows normal curvature. EXTREMITIES: No Cyanosis and clubbing, no edema. LABORATORY DATA: White count of 11.3, hemoglobin 13.2 and platelet count is 223. INR is 0.94. Sodium is 140, potassium is 4.1 and creatinine is 1.7. His initial creatinine was 2.0 and at this point it is 1.7. His baseline creatinine is about 1.6 to 2.3. Urine shows ketones and trace blood and trace glucose is 500. Toxicology shows opiates positive and benzodiazepines positive, otherwise negative. His bilateral knee x-rays show no fractures or dislocation, just osteoarthritis. CT of the head done shows no interval hemorrhage or mass affect. Chest x-ray shows no infiltrates. EKG shows heart rate of 102, sinus tachycardia. QTc is 448. His lumbar spinal CT shows severe stenosis at L3-L4, moderate to severe stenosis at L4-L5 and severe foraminal stenosis at L5-S1. ASSESSMENT: 1. Fall. 2. Diabetes type 2. 3. Chronic obstructive pulmonary disease. 4. Hypertension. 5. Possible syncope. 6. Hypothyroidism. 7. Deep vein thrombosis/inferior vena cava filter, not on anticoagulation. 8. Dyslipidemia. 9. Chronic kidney disease, stage III. 10. Obese with a body mass index of 42. 11. Diabetic nephropathy. 12. Severe stenosis at L3-L4. 13. Severe stenosis at L4-L5. 14. Foraminal stenosis at L5-S1, bilaterally severe. PLAN: The patient is currently comfortable. He is going to be admitted to the hospital. I will have cardiology and neurology see the patient. The patient does have a long history of chronic pain. He had an echo and a stress test that I reviewed in the computer that did not show any significant abnormalities. I will continue the patient on his glipizide. He is going to continue on Lipitor and pregabalin. I will put him on insulin sliding scale and place him on a low dose of algorithm. I did speak to Dr. Seay regarding the case, he will see the patient today. He is going to be placed on telemetry. He is going to get his Lipitor for dyslipidemia. He was given magnesium because of hypomagnesemia. He has a MRI that has been ordered for his back. We will continue to follow him closely. Antonio Molina MD
[2017-01-25 07:52] LABS: MAGNESIUM 1.9 mg/dL (1.7-2.2); PHOSPHOROUS 3.9 mg/dL (2.5-4.5)
[2017-01-25] MEDS: Insulin Reg-LOW-Coverage SC SCH ×4 (08:12→22:30)
--- NOTE | 2017-01-25 08:23 | CON ---
ADDENDUM DATE: 01/24/2017 REASON FOR ADDENDUM: Orthostatic was changed. Orthostatic blood pressure was checked and found to be as follows: lying blood pressure 161/73, sitting 138/77, and standing 129/72. More than 30 mm drop in blood pressure found on orthostasis. It means significant drop in blood pressure on standing, that could be the potential cause for syncope. In case of above, we will start IV fluids 100 mL of normal saline for 1 L followed by 50 mL an hour. We will check periodic orthostatic. We will get the lipid profile, TSH, hemoglobin A1c. We will follow with you. Thank you Dr. Molina for the opportunity in taking care of Fabián Munguia. Roseann Seay MD
--- NOTE | 2017-01-25 15:10 | MRI ---
PROCEDURE: MR LUMBAR SPINE WITHOUT CONTRAST HISTORY: low back pain COMPARISON: None available. TECHNIQUE: Multiecho multiplanar sequences were performed through the lumbar spine without the use of intravenous contrast. FINDINGS: Normal lumbar lordosis. Vertebral body heights are preserved. Marrow signal unremarkable. Conus medullaris unremarkable at the level of T12 Paraspinal soft tissues are unremarkable. T12-L1: No disc herniation, spinal canal stenosis or neural foraminal narrowing. L1-2: No disc herniation, spinal canal stenosis or neural foraminal narrowing. L2-3: No disc herniation, spinal canal stenosis or neural foraminal narrowing. L3-4: Moderate disc bulge and severe facet arthropathy. This produces mild to moderate central stenosis. L4-5: Disc bulge and facet arthropathy with moderate stenosis. Left-sided foraminal stenosis L5-S1: Severe disc degeneration with loss of disc height and disc bulging. Bilateral foraminal stenosis right greater than left OTHER FINDINGS: None. IMPRESSION: Multilevel disc degeneration. Mild to moderate stenosis at L3-4 and L4-5. Severe disc degeneration with bilateral foraminal stenosis at L5-S1
--- NOTE | 2017-01-25 16:21 | PN ---
DATE: 01/25/2017 REASON FOR CONSULTATION: Followup syncope, cardiac evaluation, and orthostatic hypotension. SUBJECTIVE: The patient is lying flat on bed, not in apparent distress. No dizziness. No chest pain. No shortness of breath. OBJECTIVE/PHYSICAL EXAMINATION: GENERAL: Lying flat in the bed, not in distress. VITAL SIGNS: Temperature is afebrile, heart rate is 73, and blood pressure is 136/70. HEENT: PERRLA. Extraocular muscles are intact. NECK: Supple. No carotid bruit. No thyromegaly. CHEST: Clear to auscultation. HEART: S1 and S2 regular. ABDOMEN: Soft. EXTREMITIES: Clubbing and cyanosis negative. LABORATORY DATA: Blood workup as follows, WBC is 7.5, hemoglobin is 11, hematocrit is 34.6, platelet count is 167. Chemistries shows sodium of 140, potassium of 4.1, chloride of 102, carbon dioxide of 29, anion gap of 30, BUN of 30, and creatinine of 1.7 as of yesterday. IMPRESSION: A 61-year-old obese male body mass 42 kg/m2, diabetes, hypertension, hyperlipidemia, back pain on multiple pain medication, short-acting intermediate to long-acting OxyContin, admitted with syncope episode twice. Yesterday, orthostatic pressure was still found to be significant dropping 30 mm, dropping blood pressure from lying to standing. Also, the patient has an elevated BUN and creatinine. The patient was started intravenous fluid to 100 mL an hour for 1 liter, now 50 mL an hour. Awaiting for repeat blood pressure check. Recent cardiac workup was essentially negative. On last admission dated 12/25/2016, echocardiogram shows normal chamber size, ejection fraction of 55% to 60%, trace mitral regurgitation, trace tricuspid regurgitation, trace pulmonary insufficiency, and trace aortic insufficiency. Also the patient had stress test dated 12/26/2016, and there is a normal myocardial perfusion study. No significant ischemia noted. RECOMMENDATIONS: Explained to the patient to be gentle on OxyContin because the patient is on short-acting intermediate, long-acting that can also causes dizziness and orthostatic hypotension. We will check repeat orthostatic hypotension and we will adjust IV fluids accordingly to orthostatic hypotension. Repeat the blood workup in the morning. Thank you Dr. Molina for providing us opportunity in taking care of the patient. Fabián Munguia will follow with you. Roseann Seay MD cc: Dr. Molina
[2017-01-25] MEDS: Sodium Chloride 0.9% 1,000 ML IV SCH (20:00)
[2017-01-26] MEDS: oxyCODONE 30 mg Immediate Release Tab PO PRN ×2 (03:28→10:21)
[2017-01-26 07:40] LABS: BASO # 0.02 K/mm3 (0.0-2.0); BASO % 0.2 % (0.0-3.0); EOS # 0.2 (0.0-0.7); EOS % 2.6 % (1.5-5.0); GRAN # 4.69 (1.4-6.5); GRAN % 58.5 % (50.0-68.0); HEMATOCRIT 35.7 % (42.0-52.0); LYMPH # 2.6 (1.2-3.4); LYMPH % 31.9 % (22.0-35.0); MEAN CORPUSCULAR HEMOGLOBIN 28.2 pg (25.0-35.0); MEAN CORPUSCULAR HGB CONC 31.7 g/dl (31.0-37.0); MEAN PLATELET VOLUME 10.2 fl (7.0-11.0); MONO # 0.6 (0.1-0.6); MONO % 6.8 % (1.0-6.0); RED CELL DISTRIBUTION WIDTH 13.3 % (11.5-14.5)
[2017-01-26 07:53] LABS: BILIRUBIN,TOTAL 0.6 mg/dL (0.2-1.3); CALCIUM 8.8 mg/dL (8.4-10.5); MAGNESIUM 1.8 mg/dL (1.7-2.2); PHOSPHOROUS 3.1 mg/dL (2.5-4.5); POTASSIUM 4.7 mmol/L (3.6-5.0); TOTAL PROTEIN 6.9 g/dL (5.8-8.3)
[2017-01-26] MEDS: Insulin Reg-LOW-Coverage SC SCH ×4 (08:39→22:18)
--- NOTE | 2017-01-26 13:19 | PN ---
DATE: 01/26/2017 REASON FOR CONSULTATION: Followup syncope, cardiac evaluation, and orthostatic hypotension. SUBJECTIVE: Lying flat in the bed, not in apparent distress. Denies any chest pain, shortness of breath, or any palpitations. Denies any dizziness. PHYSICAL EXAMINATION: GENERAL: Lying flat, not in apparent distress. VITAL SIGNS: As follows; day before yesterday, the patient's significant orthostatic hypotension lying 161, sitting 138, and standing 129. Temperature afebrile, heart rate , and blood pressure 134/60. HEENT: PERRLA. Extraocular muscles intact. NECK: Supple. No carotid bruits or thyromegaly. CHEST: Clear to auscultation. HEART: S1 and S2 regular. ABDOMEN: Soft. EXTREMITIES: Clubbing and cyanosis negative. LABORATORY DATA: Blood workup; WBC 8, hemoglobin , hematocrit 35.7, and platelet count 205. Chemistries show sodium 143, potassium 4.9, chloride 103, carbon dioxide 30, anion gap 14, BUN 31, and creatinine 1.6. IMPRESSION: Orthostatic hypotension, morbid obesity, and syncope. Recent echo and stress test essentially negative, preserved left ventricular function. RECOMMENDATIONS: Continue IV fluids and monitor orthostatic hypotension. Request to monitor orthostatic hypotension in chart to assess the need of IV fluid and monitor electrolytes and repeat the blood workup in the morning. We will follow with you. Thank you Dr. Molina for providing me the opportunity in taking care of patient, Fabián Munguia. Roseann Seay MD
--- NOTE | 2017-01-26 23:11 | PN ---
DATE: SUBJECTIVE: The patient is 61 years old, seen and examined, sitting in chair, seems to be comfortable, lying in bed, complains of back pain, complains of bilateral knee pain, has difficulty walking. PHYSICAL EXAMINATION: GENERAL: On examination today, he is awake and alert, communicative. VITAL SIGNS: He is afebrile, pulse 72, respirations 20, blood pressure 150/70. LUNGS: Bilateral fair airflow. No rhonchi or crackle. HEART: S1 and S2 audible. ABDOMEN: Soft, nontender. No rebound. No guarding. NEUROLOGIC: The patient is awake and alert and able to communicate. He has bilateral knee abrasion. He has generalized weakness. He has difficulty getting out of bed to chair or stand up. LABORATORY DATA: WBC is 8.0, hemoglobin 11.3, hematocrit 35.7, platelet of 205. Chemistry: Sodium 143, potassium 4.7, chloride 103, CO2 31, BUN 31, creatinine 1.6, blood sugar of 219. He had MRI of the lumbar spine done that shows multilevel disc degeneration, [id number] stenosis L3, L4 and L5. Bilateral knees, no fracture or dislocation. He has mild osteoarthritis. ASSESSMENT AND PLAN: 1. Status post multiple falls. 2. Bilateral knee abrasion. 3. Generalized weakness. 4. Non-insulin dependent diabetes. 5. Hypothyroidism. 6. Hyperlipidemia. PLAN: The patient is currently on oral hyperglycemic. We will monitor his blood sugar. He is on analgesics. Physical therapy evaluation has been requested for TCU evaluation. As soon as bed is available, the patient can be transferred to TCU. Marlon Vargas MD
[2017-01-27] MEDS: oxyCODONE 30 mg Immediate Release Tab PO PRN (04:43)
[2017-01-27 06:56] LABS: BASO # 0.02 K/mm3 (0.0-2.0); BASO % 0.3 % (0.0-3.0); EOS # 0.2 (0.0-0.7); EOS % 3.5 % (1.5-5.0); GRAN # 3.53 (1.4-6.5); GRAN % 56.2 % (50.0-68.0); LYMPH % 32.5 % (22.0-35.0); MEAN CELL VOLUME 89.3 fl (80.0-105.0); MEAN CORPUSCULAR HEMOGLOBIN 28.3 pg (25.0-35.0); MEAN CORPUSCULAR HGB CONC 31.7 g/dl (31.0-37.0); MONO # 0.5 (0.1-0.6); MONO % 7.5 % (1.0-6.0); RED CELL DISTRIBUTION WIDTH 13.4 % (11.5-14.5); WHITE BLOOD COUNT 6.3 10^3/ul (4.5-11.0)
[2017-01-27 07:51] LABS: ALB/GLOB RATIO 1.1 (1.1-1.8); BILIRUBIN,TOTAL 0.4 mg/dL (0.2-1.3); CALCIUM 8.8 mg/dL (8.4-10.5); MAGNESIUM 1.8 mg/dL (1.7-2.2); PHOSPHOROUS 3.6 mg/dL (2.5-4.5); POTASSIUM 4.4 mmol/L (3.6-5.0); TOTAL PROTEIN 6.6 g/dL (5.8-8.3)
[2017-01-27] MEDS: Insulin Reg-LOW-Coverage SC SCH ×2 (08:44→12:19)
[2017-01-27] MEDS: Enoxaparin 40 mg Syringe SC SCH (15:05)
[2017-01-27] MEDS: Insulin Reg-HIGH-Coverage SC SCH ×2 (18:29→21:50)
--- NOTE | 2017-01-27 18:57 | PN ---
DATE: SUBJECTIVE: The patient is 61 years old, seen and examined, lying in bed. Complaining of generalized weakness. He states he cannot even move his legs while even in bed. Eating and tolerating. PHYSICAL EXAMINATION VITAL SIGNS: He is afebrile, pulse 70, respirations 20, blood pressure 155/76. LUNGS: Bilateral fair airflow. No rhonchi or crackle. HEART: S1 and S2 audible. ABDOMEN: Soft, nontender. No rebound. No guarding. NEUROLOGIC: The patient is awake and alert, able to communicate, has generalized weakness. Bilateral knee abrasion seems to be a little affected. LABORATORY DATA: WBC is 6.3, hemoglobin 11, hematocrit 35, platelet of 208. Chemistry: Sodium 140, potassium 4.4, chloride 103, CO2 31, BUN 25, creatinine 1.5, blood sugar of 310. Lumbar spine shows extensive degenerative disk disease. ASSESSMENT AND PLAN: 1. Generalized weakness. 2. Status post fall. 3. Bilateral knee abrasion. 4. Deconditioning and difficulty walking. 5. Non-insulin dependent diabetes. PLAN: We will do Silvadene dressing to both knees, pain medication, add Januvia to his regimen. His blood sugar seems to be running high, I will increase his insulin coverage to high dose. TCU evaluation as been requested. Once bed is available, he will be transferred. Marlon Vargas MD
[2017-01-28] MEDS: oxyCODONE 30 mg Immediate Release Tab PO PRN ×2 (02:00→13:23)
[2017-01-28 05:56] LABS: BASO # 0.03 K/mm3 (0.0-2.0); BASO % 0.4 % (0.0-3.0); EOS # 0.2 (0.0-0.7); GRAN # 4.52 (1.4-6.5); GRAN % 59.3 % (50.0-68.0); HEMATOCRIT 35.9 % (42.0-52.0); LYMPH # 2.3 (1.2-3.4); LYMPH % 29.7 % (22.0-35.0); MEAN CELL VOLUME 89.1 fl (80.0-105.0); MEAN CORPUSCULAR HEMOGLOBIN 29.3 pg (25.0-35.0); MEAN CORPUSCULAR HGB CONC 32.9 g/dl (31.0-37.0); MONO # 0.6 (0.1-0.6); MONO % 7.6 % (1.0-6.0); RED CELL DISTRIBUTION WIDTH 13.3 % (11.5-14.5); WHITE BLOOD COUNT 7.6 10^3/ul (4.5-11.0)
[2017-01-28 06:12] LABS: BILIRUBIN,TOTAL 0.4 mg/dL (0.2-1.3); CALCIUM 9.2 mg/dL (8.4-10.5); MAGNESIUM 1.7 mg/dL (1.7-2.2); PHOSPHOROUS 3.4 mg/dL (2.5-4.5); POTASSIUM 4.9 mmol/L (3.6-5.0); TOTAL PROTEIN 6.8 g/dL (5.8-8.3)
[2017-01-28] MEDS: Insulin Reg-HIGH-Coverage SC SCH ×4 (07:43→22:14)
--- NOTE | 2017-01-28 09:28 | PN ---
DATE: 01/27/2017 REASON FOR CONSULTATION: Followup syncope, cardiac evaluation, and orthostatic hypotension. SUBJECTIVE: Denies any chest pain or shortness of breath. Denies any dizziness OBJECTIVE: GENERAL: Lying flat in the bed, not in apparent distress. VITAL SIGNS: Temperature is afebrile, heart rate is 70, and blood pressure is 150/70. HEENT: PERRLA intact. NECK: Supple. No carotid bruit. No thyromegaly. CHEST: Clear to auscultation. HEART: S1 and S2 regular. ABDOMEN: Soft. EXTREMITIES: Clubbing and cyanosis negative. LABORATORY DATA: WBC is 8.3, hemoglobin is 11.1, hematocrit is 35, platelet count is 208. Chemistry shows sodium of 140, potassium of 4.4, chloride of 103, carbon dioxide of 30, anion gap of 10, BUN of 25, and creatinine of 1.5. IMPRESSION: Syncope, possibly most likely secondary to orthostatic hypotension, acute renal injury and chronic renal insufficiency, improved, obesity, multiple doses of OxyContin, intermediate and long-acting OxyContin, recently negative stress test and echo, normal left ventricular function. RECOMMENDATIONS: We will check orthostatic, requested yesterday, secondary to not done. Reassess orthostatic hypotension. If remained stable, possible discharge in a day or two. We will repeat the blood workup in the morning. We will request again for check for orthostatic, had been requested yesterday, but no orthostatics were checked. We will suggest to do orthostatics today. Thank you Dr. Molina for providing me the opportunity in taking care of the patient, Fabián Munguia. Roseann Seay MD cc: MD Antonio Porter MD
[2017-01-28] MEDS: Enoxaparin 40 mg Syringe SC SCH (09:47)
[2017-01-28] MEDS: oxyCODONE 80 mg ER Tab (oxyCONTIN) PO SCH ×2 (09:48→22:17)
[2017-01-28] MEDS: Silver Sulfadiazine 1% Cream (25 gm) TP SCH (11:26)
--- NOTE | 2017-01-28 14:37 | PN ---
DATE: 01/28/2017 LOCATION: The patient in room 362, bed 2. REASON FOR CONSULTATION AND FOLLOWUP: Syncope, cardiac evaluation, orthostatic hypotension. SUBJECTIVE: The patient right now lying flat in bed without chest pain, shortness of breath, palpitation. PHYSICAL EXAMINATION: VITAL SIGNS: Blood pressure 164/95, respirations 19, pulse 72, and temperature 98. Yesterday, the patient lying down, blood pressure was 149/80, sitting was 176/81, standing 179/112. Today, respirations 19, pulse 72, temperature 98. HEENT: Head is normocephalic. Eyes; pupils are normal. Conjunctiva are slightly pale. NECK: JVP low. Carotids equal. Thorax, AP diameter normal. LUNGS: Clear. CARDIOVASCULAR: S1 and S2. ABDOMEN: Soft, nontender. No organomegaly. Bowel sounds normal. EXTREMITIES: No clubbing. No cyanosis. LABORATORY DATA: WBC 7.6, hemoglobin 11.8, hematocrit 35.9, and platelet 239. Sodium 142, potassium 4.9, BUN 26, creatinine 1.6 and sugar 189. Calcium 9.2, phosphorus 3.4. Magnesium 1.7. AST and ALT normal. Total protein and albumin normal. DIAGNOSES: Syncope, most likely secondary to orthostatic hypotension, which is improved; acute renal injury; chronic renal insufficiency, which has also improved; obesity; multiple doses of OxyContin, both intermediate and long acting. Recently, had stress test, which was negative and recently had echo, which was normal with normal left ventricle ejection fraction. PLAN: The patient on Glipizide 10 mg b.i.d., Januvia 15 mg daily, Lipitor 40 mg daily, Lovenox 40 mg subcutaneous daily, Lyrica 300 mg b.i.d., oxycodone intermediate 30 mg p.o. q. 4 hours p.r.n., oxycodone 80 mg p.o. q. 12 hours. We will continue present therapy and we will monitor blood pressure and if it stays high then we will treat. We will follow with you. Roseann Matos MD
--- NOTE | 2017-01-28 22:27 | CP.PCM.PN ---
<Eduar Muir - Last Filed: 01/28/17 22:31> Subjective - Date & Time of Evaluation Date of Evaluation: 01/28/17 Time of Evaluation: 10:30 - Subjective Subjective: Neurology Progress Note Patient seen and examined at bedside. No acute events overnight. No acute complaints. Still has poor gait, requiring assistance of nursing, and still has baseline diabetic neuropathy, from chronically poorly controlled DM. Denies chest pain, shortness of breath, focal weakness, new paresthesias. Objective - Vital Signs/Intake and Output Vital Signs (last 24 hours): Temp Pulse Resp BP Pulse Ox 97.5 F L 67 19 123/61 95 01/28/17 16:00 01/28/17 16:00 01/28/17 16:00 01/28/17 16:00 01/28/17 16:00 Intake and Output: 01/28/17 01/29/17 18:59 06:59 Intake Total 540 Output Total 700 Balance -160 - Medications Medications: Current Medications Alprazolam (Xanax) 1 mg PO TID [facility] Last Admin: 01/28/17 17:39 Dose: 1 mg Atorvastatin Calcium (Lipitor) 40 mg PO DAILY [facility] Last Admin: 01/28/17 09:48 Dose: 40 mg Enoxaparin Sodium (Lovenox) 40 mg SC DAILY [facility] PRN Reason: Protocol Last Admin: 01/28/17 09:47 Dose: 40 mg Glipizide (Glucotrol) 10 mg PO BID [facility] Last Admin: 01/28/17 17:39 Dose: 10 mg Insulin Human Regular (Humulin R High) 0 units SC ACHS [facility] PRN Reason: Protocol Last Admin: 01/28/17 22:14 Dose: Not Given Oxycodone HCl (Oxycodone Immediate Release Tab) 30 mg PO Q4 PRN PRN Reason: Pain, moderate (4-7) Last Admin: 01/28/17 13:23 Dose: 30 mg Oxycodone HCl (Oxycontin Extended Release Tab) 80 mg PO Q12 [facility] Last Admin: 01/28/17 22:17 Dose: 80 mg Pregabalin (Lyrica) 300 mg PO BID [facility] Last Admin: 01/28/17 17:39 Dose: 300 mg Silver Sulfadiazine (Silvadene 1% 25 Gm) 25 gm TP DAILY [facility] Last Admin: 01/28/17 11:26 Dose: 25 gm Sitagliptin Phosphate (Januvia) 50 mg PO DAILY [facility] Last Admin: 01/28/17 09:48 Dose: 50 mg - Labs Labs: 01/28/17 05:20 01/28/17 05:20 PT 10.2 Seconds (9.9-11.8) 01/23/17 11:59 INR 0.94 (0.93-1.08) 01/23/17 11:59 APTT 25.0 Seconds (23.7-30.8) 01/23/17 11:59 - Additional Findings Additional findings: - Constitutional Appears: Well, Non-toxic, No Acute Distress, Chronically Ill - Head Exam Head Exam: ATRAUMATIC, NORMAL INSPECTION, NORMOCEPHALIC - Eye Exam Eye Exam: EOMI, Normal appearance. absent: Conjunctival injection, Scleral icterus - ENT Exam ENT Exam: Mucous Membranes Moist. absent: Mucous Membranes Dry - Neck Exam Neck exam: Positive for: Full Rom, Normal Inspection - Respiratory Exam Respiratory Exam: Decreased Breath Sounds (mild decreased breath sounds in all harrell), Clear to Auscultation Bilateral, NORMAL BREATHING PATTERN. absent: Accessory Muscle Use, Chest Wall Tenderness, Rales, Rhonchi, Wheezes - Cardiovascular Exam Cardiovascular Exam: REGULAR RHYTHM, RRR, +S1, +S2. absent: Bradycardia, Tachycardia, Irregular Rhythm, +S4 - GI/Abdominal Exam GI & Abdominal Exam: Normal Bowel Sounds, Soft. absent: Diminished Bowel Sounds , Distended, Firm, Hyperactive Bowel Sounds, Hypoactive Bowel Sounds, Rigid, Tenderness - Extremities Exam Extremities exam: Positive for: full ROM, pedal edema (+2 pitting edema in bilateral LE from mid-feet to mid-shins). Negative for: calf tenderness, joint swelling, tenderness - Neurological Exam awake and alert, following all commands appropriately, moving all extremities spontaneously sensory and motor grossly intact and equal bilaterally - Psychiatric Exam Psychiatric exam: Normal Affect, Normal Mood - Skin Skin Exam: Dry, Intact, Normal Color, Warm Assessment and Plan - Assessment and Plan (Free Text) Assessment: This is a 61 yo M with PMH of COPD, HTN, poorly controlled DM, gout, DVT s/p IVC filter, and chronic back pain 2/2 spinal stenosis who presents with complaint of syncopal episode after urinating in his bathroom and then returning to his bedroom. His syncopal episode was likely vasovagal, given the occurrence right after urination. He may also orthostatic element 2/2 autonomic dysregulation in the setting of underlying and poorly controlled diabetes (last A1c: 12) with significant diabetic neuropathy. CT head was negative for acute issue. His gait dysfunction is likely due to his diabetic neuropathy as well as his known lumbar stenosis. He will need PT as an outpatient; pending JAZMYN per note. MRI of lumbar spine notable for foraminal stenosis at L5/S1, mild-moderate stenosis at L3/4 and L4/5. Plan: 1) Maintain Blood glucose 140-180, continue home lyrica for diabetic neuropathy 2) Gentle hydration 3) PT/OT, pending JAZMYN as per SW note Patient reviewed and discussed with attending, Dr. Rapp. <Shai Rapp - Last Filed: 01/29/17 10:25> Objective - Vital Signs/Intake and Output Vital Signs (last 24 hours): Temp Pulse Resp BP Pulse Ox 97.7 F 64 20 119/64 95 01/29/17 08:53 01/29/17 08:53 01/29/17 08:53 01/29/17 08:53 01/29/17 08:53 Intake and Output: 01/29/17 01/29/17 06:59 18:59 Intake Total 420 Balance 420 - Medications Medications: Current Medications Alprazolam (Xanax) 1 mg PO TID [facility] Last Admin: 01/29/17 10:15 Dose: 1 mg Atorvastatin Calcium (Lipitor) 40 mg PO DAILY [facility] Last Admin: 01/29/17 10:15 Dose: 40 mg Enoxaparin Sodium (Lovenox) 40 mg SC DAILY [facility] PRN Reason: Protocol Last Admin: 01/29/17 10:15 Dose: 40 mg Glipizide (Glucotrol) 10 mg PO BID [facility] Last Admin: 01/29/17 10:15 Dose: 10 mg Insulin Human Regular (Humulin R High) 0 units SC ACHS [facility] PRN Reason: Protocol Last Admin: 01/29/17 10:16 Dose: 2 units Oxycodone HCl (Oxycodone Immediate Release Tab) 30 mg PO Q4 PRN PRN Reason: Pain, moderate (4-7) Last Admin: 01/28/17 13:23 Dose: 30 mg Oxycodone HCl (Oxycontin Extended Release Tab) 80 mg PO Q12 [facility] Last Admin: 01/29/17 10:15 Dose: 80 mg Pregabalin (Lyrica) 300 mg PO BID [facility] Last Admin: 01/29/17 10:15 Dose: 300 mg Silver Sulfadiazine (Silvadene 1% 25 Gm) 25 gm TP DAILY [facility] Last Admin: 01/29/17 10:24 Dose: 25 gm Sitagliptin Phosphate (Januvia) 50 mg PO DAILY [facility] Last Admin: 01/29/17 10:15 Dose: 50 mg - Labs Labs: 01/28/17 05:20 01/28/17 05:20 PT 10.2 Seconds (9.9-11.8) 01/23/17 11:59 INR 0.94 (0.93-1.08) 01/23/17 11:59 APTT 25.0 Seconds (23.7-30.8) 01/23/17 11:59 Attending/Attestation - Attestation I have personally seen and examined this patient.: Yes I have fully participated in the care of the patient.: Yes I have reviewed all pertinent clinical information, including history, physical exam and plan: Yes
--- NOTE | 2017-01-29 08:34 | PN ---
DATE: 01/28/2017 HISTORY OF PRESENT ILLNESS: This is a 61-year-old male who is coming into the hospital because of fall. He was seen by neurology and cardiology. Has significant back pain is on multiple medications for his back. He does have a significant back issue that can be seen by the CT and MRI that was done. He has no complaints of any headaches or dizziness. No nausea. He was seen by physical therapy and he is awaiting for subacute rehab discharge. PHYSICAL EXAMINATION: VITAL SIGNS: Temperature is 97.9, pulse of 80, blood pressure 175/53 and respirations 20. GENERAL: The patient is lying in bed, flat, comfortable. HEENT: No oral lesion. Anicteric sclerae. Moist mucosa. NECK: No JVD, adenopathy, or thyromegaly. CARDIOVASCULAR: S1 and S2, regular. No murmurs, rubs, or gallops. LUNGS: Clear to auscultation bilaterally. No wheeze, rales, or rhonchi. ABDOMEN: Bowel sounds are positive. Soft, nontender and nondistended. EXTREMITIES: No cyanosis, clubbing or edema. LABORATORY DATA: Creatinine is 1.5. MRI shows multilevel disk degeneration, [id number] stenosis at L3-L4 and L4-L5. Severe disk generation of bilateral foraminal stenosis at L5-S1. ASSESSMENT: 1. Fall. 2. Diabetes type 2. 3. Chronic obstructive pulmonary disease. 4. Foraminal stenosis at L3-L4 and L4-L5. 5. Degenerative joint disease with bilateral foraminal stenosis at L5-S1. 6. Hypertension. 7. Hypothyroidism. 8. Deep vein thrombosis/inferior vena cava, not on anticoagulation. 9. Dyslipidemia. 10. Chronic kidney disease, stage III. 11. Obese with a body mass index of 42. 12. Diabetic neuropathy. PLAN: The patient is currently comfortable. His pain medications are adequate. He is on Januvia for his diabetes. He is on Lipitor for his dyslipidemia. The patient is on Lovenox for DVT prophylaxis. He is getting oxycodone for pain. He is on Xanax daily. His sugar has been elevated on the patient's fingerstick. Antonio Molina MD [facility]
[2017-01-29 08:54] VITALS: RESP 20
[2017-01-29] MEDS: Enoxaparin 40 mg Syringe SC SCH (10:15)
[2017-01-29] MEDS: oxyCODONE 80 mg ER Tab (oxyCONTIN) PO SCH ×2 (10:15→21:13)
[2017-01-29] MEDS: Insulin Reg-HIGH-Coverage SC SCH ×4 (10:16→21:30)
[2017-01-29] MEDS: Silver Sulfadiazine 1% Cream (25 gm) TP SCH (10:24)
--- NOTE | 2017-01-29 17:27 | PN ---
DATE: 01/29/2017 REASON FOR THE CONSULTATION AND FOLLOWUP: Syncope, cardiac evaluation, orthostatic hypotension. SUBJECTIVE: The patient denies any chest pain, shortness of breath, or any palpitations. No dizziness. OBJECTIVE: GENERAL: Lying flat in the bed, not in apparent distress. VITAL SIGNS: As follows: Temperature afebrile, heart rate is 64, blood pressure 109/64. HEENT: PERRLA. Extraocular muscles intact. NECK: Supple. No carotid bruits or thyromegaly. CHEST: Clear to auscultation. HEART: S1 and S2 regular. ABDOMEN: Soft. EXTREMITIES: Clubbing and cyanosis negative. LABORATORY DATA: Blood workup as follows; WBC 7.6, hemoglobin 11.8, hematocrit 35.9, platelet count 239. Chemistry shows as of yesterday , sodium 140, potassium 4.9, chloride 106, carbon dioxide 23, anion gap of 11, BUN 26, creatinine 1.6. IMPRESSION: Chronic renal insufficiency, creatinine clearance 44 mL, syncope secondary to orthostatic hypotension, multiple pain medication, morbid obesity, diabetes, recently noninvasive cardiac workup is essentially negative, admitted with near syncope, possibly secondary to orthostatic hypotension. RECOMMENDATIONS: Continue glipizide, continue Januvia, continue DVT prophylaxis, . CVS status is stable. We will follow with you. Thank you Dr. Molina for providing us the opportunity in taking care of the patient, Fabián Munguia. Roseann Seay MD
--- NOTE | 2017-01-29 20:55 | PN ---
DATE: 01/29/2017 SUBJECTIVE: The patient has no complaints of any chest pain or shortness of breath, no headache. PHYSICAL EXAMINATION: VITAL SIGNS: Temperature is 98.3, pulse is 72, blood pressure is 123/62, respirations 20. GENERAL: The patient is lying in bed, flat, comfortable. HEENT: No oral lesion. Anicteric sclerae. Moist mucosa. NECK: No JVD, adenopathy, or thyromegaly. CARDIOVASCULAR: S1 and S2, regular. No murmurs, rubs, or gallops. LUNGS: Clear to auscultation bilaterally. No wheeze, rales, or rhonchi. ABDOMEN: Bowel sounds are positive, soft, nontender and nondistended. EXTREMITIES: no cyanosis, clubbing or edema. LABS: White count of 7.6, hemoglobin 11.8 and creatinine is 1.6. ASSESSMENT: 1. Fall. 2. Diabetes type 2. 3. Chronic obstructive pulmonary disease. 4. Foraminal stenosis at L3-L4 and L4-L5. 5. Degenerative disc disease of bilateral foraminal stenosis at L5-S1. 6. Hypertension. 7. Hypothyroidism. 8. Deep vein thrombosis/inferior vena cava, not on anticoagulation. 9. Dyslipidemia. 10. Chronic kidney disease, stage III. 11. Obese with a body mass index of 47. PLAN: The patient is on glipizide for diabetes. He is on Januvia for diabetes as well. He is going to continue with Lyrica for his neuropathy. The patient is on oxycodone for his pain. He is going to continue with Xanax for his anxiety. He is receiving OxyContin for his pain as well. He is awaiting for discharge to a subacute rehab facility. Antonio Molina MD
[2017-01-30] MEDS: oxyCODONE 30 mg Immediate Release Tab PO PRN (05:49)
[2017-01-30] MEDS: Insulin Reg-HIGH-Coverage SC SCH (08:10)
[2017-01-30 08:48] VITALS: BP 138/66; PULSE 78; TEMP 98.2; O2SAT 97
[2017-01-30] MEDS: Enoxaparin 40 mg Syringe SC SCH (09:31)
[2017-01-30] MEDS: oxyCODONE 80 mg ER Tab (oxyCONTIN) PO SCH (09:33)
[2017-01-30] MEDS: Silver Sulfadiazine 1% Cream (25 gm) TP SCH (09:34)
--- NOTE | 2017-01-30 11:05 | DS ---
HISTORY OF PRESENT ILLNESS: The patient is a 61-year-old male who had come into the hospital after he had a fall. The patient had a history of significant back issues. He had CAT scan and MRI done. He was evaluated by Dr. Rapp. The patient is planning to go to a rehab facility. He has no complaints of any chest pain or shortness of breath. No nausea. No vomiting. PHYSICAL EXAMINATION: VITAL SIGNS: Temperature 97.5, pulse 67, blood pressure 123/61, respirations 19, and O2 saturation 95%. GENERAL: The patient is lying in bed, flat, comfortable. HEENT: No oral lesion. Anicteric sclerae. Moist mucosa. NECK: No JVD, adenopathy, or thyromegaly. CARDIOVASCULAR: S1 and S2, regular. No murmurs, rubs, or gallops. LUNGS: Clear to auscultation bilaterally. No wheeze, rales, or rhonchi. ABDOMEN: Bowel sounds are positive, soft, nontender and nondistended. EXTREMITIES: No cyanosis, clubbing or edema. ASSESSMENT: 1. Fall. 2. Diabetes type 2. 3. Chronic obstructive pulmonary disease. 4. Foraminal stenosis at L3-L4 and L4-L5. 5. Degenerative disk disease of bilateral foraminal stenosis at L5-S1. 6. Hypertension. 7. Hypothyroidism. 8. Deep vein thrombosis/inferior vena cava, not on anticoagulation. 9. Dyslipidemia. 10. Chronic kidney disease stage III. 11. Obese with a body mass index of 47. PLAN: The patient is going to continue with Glucotrol for his diabetes. He is on Januvia for his diabetes as well. He is on Lovenox for DVT prophylaxis. He is on pregabalin for neuropathy. The patient is on oxycodone and OxyContin for pain, which is controlled. He is on a heart healthy diet. Condition is stable. Activity increase as tolerated. Followup with Dr. Antonio Molina and Dr. Adams in one to two weeks. Antonio Molina MD
--- NOTE | 2017-01-30 13:19 | PN ---
DATE: 01/30/2017 LOCATION: The patient is in room 362, bed 2. REASON FOR CONSULTATION: Follow up his syncope, cardiac evaluation, orthostatic hypotension. SUBJECTIVE: The patient lying flat in bed without any chest pain, shortness of breath, or palpitation. Denies any dizziness. PHYSICAL EXAMINATION VITAL SIGNS: Blood pressure 138/66, respirations 20, pulse 78, temperature 98.2. HEENT: Head is normocephalic. Eyes: Pupils normal. Conjunctivae normal. NECK: JVP low. Carotids equal. THORAX: AP diameter normal. LUNGS: Clear. CARDIOVASCULAR: S1 and S2. ABDOMEN: Soft. No tenderness. No organomegaly. Bowel sounds are normal. EXTREMITIES: No clubbing or cyanosis. LABORATORY DATA: WBC 7.6, hemoglobin 11.8, hematocrit 35.9, platelets 239. Random sugar 110. Other labs were done on 01/27, and they were reported in all previous notes. DIAGNOSES: Chronic renal insufficiency, creatinine clearance 44 mL, syncope secondary to orthostatic hypotension because the patient was on multiple pain medication, morbid obesity, and diabetes. Recently, cardiac noninvasive workup was negative. PLAN: Continue present therapy and we will follow with you. Clinically, cardiac status is stable. Roseann Matos MD
== END 2017-01-30 11:44 | DRG 312 ==
LOC: ED 11:19 → ERH 14:21 → 2RSO 16:22 → OBSVTOIN 01-25 07:51 → 3RNO 01-25 11:15
PROVIDERS: ADMIT Internal Medicine Nephrology; ATTEND Internal Medicine Nephrology
DX: I95.1 Orthostatic hypotension (principal); N17.9 Acute kidney failure, unspecified; I13.0 Hypertensive heart and chronic kidney disease with heart failure and stage 1 through stage 4 chronic kidney disease, or unspecified chronic kidney disease; Z68.42 Body mass index [BMI] 45.0-49.9, adult; I50.9 Heart failure, unspecified; E11.40 Type 2 diabetes mellitus with diabetic neuropathy, unspecified; E11.22 Type 2 diabetes mellitus with diabetic chronic kidney disease; N18.3 Chronic kidney disease, stage 3 (moderate); I08.3 Combined rheumatic disorders of mitral, aortic and tricuspid valves; E11.65 Type 2 diabetes mellitus with hyperglycemia; M48.06 Spinal stenosis, lumbar region; J98.4 Other disorders of lung; S80.211A Abrasion, right knee, initial encounter; S80.212A Abrasion, left knee, initial encounter; E03.9 Hypothyroidism, unspecified; E66.01 Morbid (severe) obesity due to excess calories; E78.5 Hyperlipidemia, unspecified; R26.2 Difficulty in walking, not elsewhere classified; M51.37 Other intervertebral disc degeneration, lumbosacral region; J44.9 Chronic obstructive pulmonary disease, unspecified; W19.XXXA Unspecified fall, initial encounter; Z86.718 Personal history of other venous thrombosis and embolism; Y92.092 Bedroom in other non-institutional residence as the place of occurrence of the external cause; Z79.01 Long term (current) use of anticoagulants; Z79.84 Long term (current) use of oral hypoglycemic drugs; Z88.0 Allergy status to penicillin